=== PATIENT | female | born 1960 | race Caucasian/White ===

== ENCOUNTER 2019-01-29 08:39 | Inpatient (IN) | payer MEDICARE, BC ==
[~2019-01-29] VITALS: Ht 152.4 cm; Wt 41.0 kg
[2019-01-29] VITALS (12 sets, daily range): BP systolic 96–118; BP diastolic 43–74; PULSE 93–108; RESP 24–34; Ht 152.4 cm; Wt 41.0 kg
[2019-01-29] MEDS ORDERED: SODIUM CHLORIDE 0.9% 1L BAG IV* STA (08:45)
[2019-01-29] MEDS ORDERED: ACETAMINOPHEN 650 MG SUPP PR ONE (09:00)
[2019-01-29] MEDS ORDERED: VANCOMYCIN 1 GM (PMX) 250 ML IVPB ONE (09:00)
[2019-01-29] MEDS ORDERED: PIPER-TAZO 3.375 GM IV (PMX) 100 ML IVPB ONE (09:00)
--- NOTE | 2019-01-29 09:03 | ERD ---
ER Documentation Chief Complaint Chief Complaint HPI This is a 58-year-old woman with multiple medical conditions and including end-s tage kidney disease, chronic encephalopathy, quadriplegia brought in by EMS from alf facility for fever. She was due for hemodialysis today although could not be transferred there due to fever. Patient has had no vomiting or diarrhea, no seizure activity. HPI was limited as patient was nonverbal although was supplemented by reviewing retirement records, speaking to EMS and nursing ROS All systems reviewed and are negative except as per history of present illness. Medications Home Meds Reported Medications Insulin Aspart* (Novolog Insulin Pen*) 100 Unit/Ml Soln, 0 SC Q4, EA 70-150 = 0 UNITS 151-200 = 2 UNITS 201-250 = 4 UNITS 251-300 = 6 UNITS 301-350 = 8 UNITS 351-400 =10 UNITS >400 = 12 UNITS AND CALL 01/29/19 Sodium Phosphate* (Phos-Nak*) 250 Mg/Pkt Soln, 250 MG GTB BID, PACKET [phone] 01/29/19 Lansoprazole* (Prevacid* Soltab) 30 Mg Tab, 30 MG GTB DAILY, TAB 01/29/19 Multivit/Ca Carb/B Cmplx/Fa* (Teresa-Sonido*) 1 Tab Tab, 1 TAB GTB DAILY, TAB 01/29/19 Calcium Carbonate* (Calcium Carbonate*) 600 MG Ca Tab, 600 MG GTB DAILY, TAB 01/29/19 Acetaminophen* (Acetaminophen*) 650 Mg Tablet, 650 MG GTB Q4 PRN for PAIN LEVEL 4-6 , #30 TAB 01/29/19 Ascorbic Acid* (Vitamin C*) 500 Mg Capsule.sa, 500 MG GTB DAILY, CAP 01/29/19 Zinc Sulfate* (Zinc Sulfate*) 220 Mg Tablet, 220 MG GTB DAILY, TAB 01/29/19 Insulin Detemir (Levemir Flextouch) 100 Unit/1 Ml Insuln.pen, 8 UNIT SQ DAILY, EA IF NPO GIVE 1/2 A DOSE 01/29/19 Calcitriol* (Calcitriol*) 0.5 Mcg Capsule, 0.5 MCG GTB DAILY, CAP 01/29/19 Magnesium Hydroxide* (Milk Of Magnesia*) 400 Mg/5 Ml Oral.susp, 30 ML GTB DAILY PRN for CONSTIPATION, ML 01/29/19 Bisacodyl (Laxative Suppository) 10 Mg Supp.rect, 10 MG RC DAILY PRN for CONSTIPATION, SUPP.RECT 01/29/19 Atorvastatin* (Atorvastatin*) 80 Mg Tablet, 80 MG GTB QHS, #30 TAB 01/29/19 Amlodipine Besylate* (Amlodipine Besylate*) 10 Mg Tablet, 10 MG GTB DAILY, #30 TAB HOLD IF SBP <110 OR HR <60 01/29/19 Allergies Allergies: Coded Allergies: No Known Allergy (Unverified , 01/29/19) PMhx/Soc History of end-stage kidney disease, quadriplegia, dysphagia, sacral decubitus ulcers, diabetes mellitus, hypertension, hyperlipidemia, GERD, ?stroke FmHx Family History: diabetes Physical Exam Vitals Vital Signs Date Temp Pulse Resp B/P (MAP) Pulse Ox O2 O2 Flow FiO2 Time Delivery Rate 01/29/19 94 25 67/47 (54) 100 Mechanica 11:37 l Ventilato r 01/29/19 100 30 79/40 (53) 100 Mechanica 10:47 l Ventilato r 01/29/19 97.9 102 24 104/74 100 Mechanica 10:34 (84) l Ventilato r 01/29/19 107 30 99 100 10:00 01/29/19 100.7 114 25 77/39 (52) 100 09:32 01/29/19 Non 15 09:32 Rebreathe r 01/29/19 100.7 09:09 Per nurse's records Physical Exam Const: Elderly, chronically debilitated, eyes open, unresponsive, febrile HEENT: mild uremic perdomo, pink conjunctive a, dry mucous membranes, no goiter Resp: Clear to auscultation bilaterally Cardio: Tachycardic and regular Abd: Soft, non tender, non distended. Skin: No petechiae or rashes, no lacerations, chronic ecchymosis hematoma to the left upper extremity, sacral and back exams deferred to nursing although I suspect decubitus pressure ulcers Ext: No cyanosis, or edema, diffuse muscular wasting, distal pulses equal bilateral Neur: Eyes open, pupils equal round reactive to light, quadriplegic, nonverbal and unresponsive Result Diagram: 01/29/19 0847 01/29/19 0847 Results 24 hrs Laboratory Tests Test 5/21/19 08:47 01/29/19 09:18 01/29/19 10:21 01/29/19 10:45 White Blood 22.4 10^3/ul Count Red Blood Count 2.63 10^6/ul Hemoglobin 7.3 g/dl Hematocrit 24.2 % Mean Corpuscular 92.0 fl Volume Mean Corpuscular 27.8 pg Hemoglobin Mean Corpuscular 30.2 g/dl Hemoglobin Georgette nt Red Cell 16.7 % Distribution Width Platelet Count 303 10^3/UL Mean Platelet 9.7 fl Volume Immature 1.000 % Granulocytes % Neutrophils % % Segmented 46 % Neutrophils % (Manual) Band Neutrophils 42 % % (Manual) Lymphocytes % % Lymphocytes % 1 % (Manual) Monocytes % % Monocytes % 4 % (Manual) Eosinophils % % Basophils % % Metamyelocytes % 5 % (manual) Myelocytes % 2 % (Manual) Nucleated Red 4 % Blood Cells % Immature 0.220 10^3/ul Granulocytes # Neutrophils # 10^3/ul Neutrophils # 12.4 10^3/ul (Manual) Band Neutrophils 9.4 10^3/ul # Lymphocytes 0.2 10^3/ul (Manual) Lymphocytes # 10^3/ul Monocytes # 10^3/ul Monocytes # 0.8 10^3/ul (Manual) Eosinophils # 10^3/ul Basophils # 10^3/ul Metamyelocytes # 1.1 10^3/ul Myelocytes # 0.4 10^3/ul Nucleated Red 10^3/ul Blood Cells # Platelet NORMAL Estimate Giant Platelets 1 % Polychromasia 1+ Poikilocytosis 2+ Anisocytosis 1+ Spherocytes 1+ Tear Drop Cells 1+ Ovalocytes 1+ Prothrombin Time 16.7 Sec Prothrombin Time 1.3 Ratio INR 1.34 International Normalized Ratio Activated 38.3 Sec Partial Thrombop last Time Sodium Level 140 mmol/L Potassium Level 3.5 mmol/L Chloride Level 102 mmol/L Carbon Dioxide 16 mmol/L Level Anion Gap 22 Blood Urea 101 mg/dl Nitrogen Creatinine 5.17 mg/dl Est Glomerular 8 mL/min Filtrat Rate mL/min Glucose Level 317 mg/dl Calcium Level 8.9 mg/dl Total Bilirubin 0.1 mg/dl Direct Bilirubin 0.00 mg/dl Indirect 0.1 mg/dl Bilirubin Aspartate Amino 27 IU/L Transf (AST/SGOT ) Alanine 8 IU/L Aminotransferase (ALT/SGPT) Alkaline 131 IU/L Phosphatase Troponin I 0.040 ng/ml Total Protein 6.7 g/dl Albumin 3.0 g/dl Globulin 3.70 g/dl Albumin/Globulin 0.81 Ratio Lipase 12 U/L POC Venous 5.9 mmol/L Lactate Lactic Acid 7.7 mmol/L Level Blood Gas Blood arterial Specimen Source Arterial Blood 01/29/2019 11:15: Date Drawn 13 AM Arterial Blood 7.392 pH (Temp corrected) Arterial Blood 23.2 mmhg pCO2 (Temp correct) Arterial Blood 525.2 mmHG pO2 (Temp corrected) Arterial Blood 13.8 mmol/L HCO3 Arterial Blood -10.0 mmol/L Base Excess Arterial Blood 99.8 mmHG Oxygen Saturatio n Ben Test N/A Arterial Blood Right Brachial Gas Puncture Site Arterial 0.3 % Blood Carboxyhem oglobin Arterial Blood 0.5 % Methemoglobin Blood Gas A-a O2 164.6 mmHg Differential Oxyhemoglobin 99.0 % Percent Blood Gas 37.0 C Temperature Blood Gas 16.0 Respiration Rate Blood Gas Actual 26 Respiration Rate Blood Gas VENT - AC Modality FiO2 100.0 % Blood Gas Tidal 450.0 mL Volume Blood Gas Low 5.0 cmH2O PEEP Setting Blood Gas TM Notified Whom Blood Gas 01/29/2019 11:28: Notified Time 59 AM Current Medications Medications Dose Sig/Nasrin Start Time Status Last (Trade) Ordered Route PRN Stop Time Admin Dose Reason Admin Sodium 1,000 ml BOLUS OVER 2 01/29/19 DC 01/29/19 Chloride HOURS STAT 08:45 09:09 (NS) IV* 01/29/19 08:48 Piperacillin 100 ml @ ONCE ONCE 01/29/19 DC 01/29/19 Sod/ 200 mls/hr IVPB 09:00 09:10 Tazobactam 01/29/19 09:29 Sod Vancomycin 250 ml @ ONCE ONCE 01/29/19 DC 01/29/19 HCl 125 mls/hr IVPB 09:00 10:14 01/29/19 10:59 650 mg ONCE ONCE 01/29/19 DC 01/29/19 Acetaminophen NM 09:00 09:09 (Tylenol 01/29/19 09:01 Supp) Sodium 1,000 ml @ [id number] IV 01/29/19 01/29/19 Chloride 75 mls/hr 09:53 11:02 IV Flush 3 ml PER 5/21/19 (NS 3 ml) PROTOCOL IV 10:00 Ondansetron 4 mg Q6H PRN 01/29/19 HCl (Zofran IV 10:00 Inj) NAUSEA/VOMITI NG Morphine 2 mg Q4H PRN 01/29/19 Sulfate IV .PAIN 10:00 (morphine) 7-10 40 mg DAILY@06 01/30/19 Pantoprazole IV 06:00 (Protonix Iv) 100 ml @ Q6H PRN 01/29/19 Acetaminophen 400 mls/hr IVPB 10:00 fever/pain 01/30/19 09:59 Piperacillin 100 ml @ Q6 IVPB 01/29/19 Cancel Sod/ 200 mls/hr 12:00 Tazobactam Sod Vancomycin VANCOMYCIN PER 01/29/19 HCl (Vanco PER PHARMACY PROTOCOL XX 10:00 Iv Per Pharmacy) Piperacillin 50 ml @ Q8 IVPB 01/29/19 Sod/ 100 mls/hr 15:00 Tazobactam Sod Discontinue ONCE ONCE 01/29/19 DC Miscellaneous current oral XX 11:00 sulfonylur... 01/29/19 11:04 Information (* Miscellaneous Pharmacy Order) Diagnostic 1 ea 02 XX 01/30/19 Test (Pha) 02:00 (Accu-Chek) ONCE ONCE 01/29/19 DC Miscellaneous HYPOGLYCEMIA XX 11:00 PROTOCOL 01/29/19 11:04 Information w... (* Miscellaneous Pharmacy Order) Insulin NOVOLOG Q4 SC 01/29/19 Aspart *MILD* 13:00 (Novolog ALGORITHM Insulin Pen) Discontinue ONCE ONCE 01/29/19 DC Miscellaneous all previ... XX 11:00 01/29/19 11:04 Information (* Miscellaneous Pharmacy Order) 1 ea NOTE XX 01/29/19 Miscellaneous 11:30 Information Glucose 15 gm Q15M PRN 01/29/19 (Glutose) PO DECREASED 11:30 GLUCOSE Glucose 22.5 gm Q15M PRN 01/29/19 (Glutose) PO DECREASED 11:30 GLUCOSE Dextrose 25 ml Q15M PRN 01/29/19 (D50w IV DECREASED 11:30 Syringe) GLUCOSE Dextrose 50 ml Q15M PRN 01/29/19 (D50w IV DECREASED 11:30 Syringe) GLUCOSE Glucagon 1 mg Q15M PRN 01/29/19 (Glucagen) IM DECREASED 11:30 GLUCOSE Glucose 15 gm Q15M PRN 01/29/19 (Glutose) BUCCAL 11:30 DECREASED GLUCOSE Lidocaine 5 ml ONCE ONCE 01/29/19 DC (Xylocaine SC 11:30 1% (Mpf)) 01/29/19 11:31 250 ml @ ud STK-MED 01/29/19 DC Norepinephrin ONCE .ROUTE 12:02 e 01/29/19 12:03 250 ml @ 0 TITRATE IV 01/29/19 01/29/19 Norepinephrin mls/hr 12:30 12:21 e Procedures/MDM IV line established patient placed on monitor and storage bin tender rhythm strip revealed a si nus tachycardia at 120 bpm. Patient was febrile, Sanchez was placed urine and blood cultures have been ordered results are pending I will follow-up. One AP view of the chest performed, read by me reveals no acute infiltrates, normal mediastinum, sharp costophrenic and cardiac borders, no air under the diaphragm. Otherwise unremarkable chest x-ray. EKG performed, read by me revealed a sinus tachycardia at 102 bpm, normal axis, narrow QRS complex, no concerning ST elevations or depressions noted I administered 2 L normal saline IV for dehydration and possible sepsis although full 30 cc/kg could not be given due to her past medical history, I administered acetaminophen per rectum for fever, Zosyn 3.375 g IV and vancomycin 1 g IV Labs: CBC reveals leukocytosis at 22 and anemia with a hemoglobin of 7.3, electrolytes reveals kidney failure with a creatinine 5.2, potassium normal, liver function tests unremarkable, troponin negative. Lactic acid 5.9 then 7.7 For continued dyspnea I intubated the patient. Endotracheal Intubation by me: Pre assessment performed. I administered etomidate 20 mg IV for sedation preintubation Pre-oxygenation performed with 100% oxygen RSI: Performed w/o complication or hypoxic events. Medications as ordered. Blade: 4.0 ET Tube: 7.5 cm Depth: 20 cm at the lip Intubation confirmed by colorimetric CO2, equal breath sounds, quiet over the stomach. Repeat chest X-ray 1V Interpreted by me: About 3 cm above the heide ET tube. Normal soft tissue, No pneumothorax. Central Line Placement by me: After the patient was consented and a time out was performed, appropriate hand hygiene was performed, the skin site was fully prepped and maximal sterile barrier technique was employed where the patient was sterilely draped, and the provider wore a mask and sterile gown and gloves. Anesthesia: 1% lidocaine locally Location: Right femoral vein Device: Multiple lumen Technique: Seldinger technique. Secured with suture. Results: Venous return from all ports with easy saline flush. No complications. The entire guide wire retrieved and disposed of. Patient's infectious symptoms have not stabilized and the patient is at risk of rapid decompensation. The patient will be admitted for careful hydration, antibiotic therapy, and infectious source control. SEVERE SEPSIS CRITERIA: Infectious source: Blood-borne End organ damage indicated by: Lactate > 2.0 mmol/L Hypotension (SBP < 90 or >40 mmHG drop or MAP < 65) Acute Resp Failure (sat < 92% w/o oxygen) SEPSIS MANAGEMENT Time of recognition of sepsis: Upon arrival. Time of recognition of severe sepsis: No severe sepsis at this time. Time of recognition of septic shock: No septic shock at this time. 3 HOUR BUNDLE Blood cultures x 2 before broad-spectrum antibiotics: Yes 30 ml/kg NS bolus not given due to renal failure Initial lactate 5.9 Repeat lactate 7.7 SEPTIC SHOCK ASSESSMENT: Yes lactic acid > 4.0 Yes placed in the right femoral line (see above note) persistent hypotension (SBP < 90 or 40 mmHg drop, MAP < 65) despite 30 mL/kg IV fluid bolus VOLUME REASSESSMENT FOR SEPTIC SHOCK: Reevaluation Time: 10 AM Temp 99 F, pulse 90 bpm, respiratory rate 20 breaths/min, BP 100/80, oxygen saturation 100% Heart regular rate & rhythm Lungs no crackles Skin warm & dry Cap Refill less than 2 seconds Peripheral pulses radially present PERSISTENT HYPOTENSION TREATMENT: Comfort care no Central line placed in the right femoral vein (see above note) Vasopressor started Levophed drip I considered further perfusion assessment with CVP measurement, SCVO2, bedside ultrasound volume assessment, passive leg raise, trial of further fluid bolus. And proceeded with gentle fluid hydration, IV antibiotics, intubation and central line placement CRITICAL CARE: Critical care time 65 minutes, this was time separate from other billable procedures. Emergent fluid management while maintaining close respiratory support. Provision of immediate and broad-spectrum antibiotic therapy. Simultaneous assessment for possible sources in order to direct targeted therapy. Consideration for invasive and chemical support to prevent cardiopulmonary collapse. Critical care time is independent of procedures performed. Accepting Care Team: Current data and ongoing care discussed. Time: Time of admission Primary Provider: Hospitalist Consulting: Infectious disease, nephrology, pulmonology Outstanding Data: none Departure Diagnosis: Primary Impression: End stage kidney disease Additional Impressions: Septic shock Acute respiratory failure Respiratory failure complication: hypoxia and hypercapnia Qualified Codes: J96.01 - Acute respiratory failure with hypoxia; J96.02 - Acute respiratory failure with hypercapnia Hypotension Hypotension type: unspecified hypotension type Qualified Codes: I95.9 - Hypotension, unspecified Condition: Critical ERIKA MURPHY MD January 29, 2019 09:03
[2019-01-29] MEDS ORDERED: AMLO-147 GTB (09:26)
[2019-01-29] MEDS ORDERED: ATOR-2 GTB (09:27)
[2019-01-29] MEDS ORDERED: BISA10SU81 RC (09:28)
[2019-01-29] MEDS ORDERED: MAGN400O19 GTB (09:29)
[2019-01-29] MEDS ORDERED: CALC0.5C10 GTB (09:29)
[2019-01-29] MEDS ORDERED: ZINC220T GTB (09:31)
[2019-01-29] MEDS ORDERED: INSU100I27 SQ (09:31)
[2019-01-29] MEDS ORDERED: ASCO500C7 GTB (09:32)
[2019-01-29] MEDS ORDERED: ACET-2047 GTB (09:32)
[2019-01-29] MEDS ORDERED: CALC600T24 GTB (09:33)
[2019-01-29] MEDS ORDERED: NEPH GTB (09:34)
[2019-01-29] MEDS ORDERED: LANS30TA6 GTB (09:35)
[2019-01-29] MEDS ORDERED: NEUTPHOS GTB (09:36)
[2019-01-29] MEDS ORDERED: NOVO3I SC (09:39)
[2019-01-29] MEDS ORDERED: VANCOMYCIN IV PER PHARMACY XX SCH (10:00)
[2019-01-29] MEDS ORDERED: ACETAMINOPHEN 1000MG/100ML IV 100 ML IVPB PRN (10:00)
[2019-01-29] MEDS ORDERED: ONDANSETRON 4 MG INJ IV PRN (10:00)
[2019-01-29] MEDS ORDERED: morphine 2 MG INJ IV PRN (10:00)
[2019-01-29] MEDS ORDERED: NACL 0.9% 3 ML SYG IV SCH (10:00)
[2019-01-29] MEDS: SOD CHLORIDE 0.9% 1,000 ML IV SCH (11:02)
--- NOTE | 2019-01-29 11:21 | CONS ---
DATE OF ADMISSION: 01/29/2019 DATE OF CONSULTATION: 01/29/2019 REASON FOR CONSULT: Respiratory distress and respiratory failure. HISTORY OF PRESENT ILLNESS: This is a 58-year-old lady with history of end-stage renal failure on he modialysis and chronic encephalopathy, quadriplegia, brought in from correction facility for alt ered mental status. Apparently he was scheduled for hemodialysis today and was unable to perform. S he developed worsening respiratory distress requiring emergent intubation in the Emergency Room and n ow is moderately hypotensive potentially requiring initiation of vasopressors. PAST MEDICAL HISTORY: 1. End-stage renal failure on hemodialysis. 2. Quadriplegia. 3. Dysphagia with G-tube. 4. Decubitus ulcers. 5. Diabetes mellitus. MEDICATIONS: Per chart. ALLERGIES: NONE. SOCIAL HISTORY: Nonsmoker, no alcohol, no history of drug use. FAMILY HISTORY: Noncontributory. SYSTEMS REVIEW: A 12-point review of systems currently unable to perform. PHYSICAL EXAMINATION: GENERAL: A chronically ill-appearing lady with contractions on mechanical ventilation. VITAL SIGNS: T-max 100.7, pulse is 100, blood pressure 104/74, O2 saturation 96%, FIO2 of 100%. NECK: Supple. No JVD or lymphadenopathy. CARDIAC: S1, S2, no added sounds or murmurs. CHEST: Diminished air entry bilaterally. ABDOMEN: Soft, nontender. No guarding or rebound. EXTREMITIES: No cyanosis, clubbing, 2+ edema. NEUROLOGIC: Unable to assess. LABORATORY DATA: White count 22.4, hemoglobin 7.3, platelets 303. BUN 101, creatinine 5.17. Lactic acid was 5.9. INR 1.34. DIAGNOSTIC DATA: Chest x-ray: No significant infiltrates or effusions. IMPRESSION AND PLAN: 1. Septic shock. 2. Acute hypoxemic respiratory failure. 3. End-stage renal failure on hemodialysis. 4. Encephalopathy. 5. Quadriplegia. 6. Dysphagia. 7. Decubitus ulcers. THE PATIENT WILL REQUIRE: 1. Continued mechanical ventilation. 2. Central line placement vasopressor support. 3. Broad-spectrum antibiotics. 4. Resumption of tube feeding. 5. Hemodialysis as tolerated. 6. Address code status and goals of care as overall prognosis is extremely poor. Dictated By: TRENT BHAENA/JULIO Conf#: [id number] [facility]#: [id number]
[2019-01-29] MEDS ORDERED: GLUCOSE GEL 15 GRAM TUBE PO PRN ×2 (11:30)
[2019-01-29] MEDS ORDERED: LIDOCAINE 1% (MPF) 5 ML VIAL SC ONE (11:30)
[2019-01-29] MEDS ORDERED: GLUCOSE GEL 15 GRAM TUBE BUCCAL PRN (11:30)
[2019-01-29] MEDS ORDERED: GLUCAGON 1 MG INJ IM PRN (11:30)
[2019-01-29] MEDS ORDERED: DEXTROSE 50% 50 ML SYRINGE IV PRN ×2 (11:30)
--- NOTE | 2019-01-29 11:37 | CONS ---
DATE OF ADMISSION: 01/29/2019 DATE OF CONSULTATION: 01/29/2019 TYPE OF CONSULTATION: Nephrology. REASON FOR CONSULTATION: End-stage renal disease. REQUESTING PHYSICIAN: Kyle Alva MD HISTORY OF PRESENT ILLNESS: This is a 58-year-old woman from a skilled nurse facility with a past medical history of end-stage renal disease, access is a left Perm-A-Cath, a history of diabetes, hypertension, dyslipidemia, GERD, history of questionable CVA, who presents to [facility] with respiratory distress. The patient was scheduled for hemodialysis today; however, was noted to be febrile. The patient was brought into the Emergency Room, upon arrival, the patient was noted to be altered. patient was in respiratory distress, febrile. The patient was hypotensive. The patient unfortunately required intubation, was started on broad spectrum antibiotics and IV fluids. In terms of patient's outpatient renal history, the patient dialyzes at [facility]. The patient's last hemodialysis was Monday. There have been no reports of any hemoptysis, hematemesis or hematochezia. PAST MEDICAL HISTORY: As stated above, history of end-stage renal disease, history of encephalopathy, history of diabetes, history of hypertension, dyslipidemia, GERD. PAST SURGICAL HISTORY: Status post left femoral dialysis catheter placement., s/p avf, s/p colostomy. s/p peg placement FAMILY HISTORY: Noncontributory. SOCIAL HISTORY: Lives at skilled nurse facility. MEDICATIONS: Have been reviewed. REVIEW OF SYSTEMS: Unable to obtain patient's review of systems as patient is obtunded. Pertinent positives last obtained by reviewing medical records, speaking to hospital staff, stated in HPI. PHYSICAL EXAMINATION: VITAL SIGNS: Blood pressure is 104/74, respirations 24, pulse 102, temperature 100.7. GENERAL: The patient is critically ill. HEENT: Head is normocephalic. Pupils are reactive to light. NECK: Supple. Positive JVD. HEART: Tachycardic. LUNGS: Show diminished breath sounds at base. Positive rhonchi. ABDOMEN: Soft, nontender to palpation. EXTREMITIES: Negative for clubbing, cyanosis, no edema. Left upper extremity positive edema, erythema. MUSCULOSKELETAL: The patient has noted left femoral dialysis catheter. NEUROLOGIC: Limited exam as the patient is obtunded. MEDICATIONS: Have been reviewed. LABORATORY DATA: Has been reviewed. IMAGING STUDIES: Have been reviewed. ASSESSMENT AND PLAN: This is a 58-year-old female who presents with: 1. End-stage renal disease. The patient is on dialysis Monday, Monday, Monday. Last hemodialysis was Monday. Anticipate hemodialysis in the next 24 hours. Will dialyze for 3 hours 4k bath, calcium 2.5. 2. Lactic acidosis likely secondary to severe sepsis, septic shock. Continue to treat underlying sepsis. Continue IV fluids, antibiotic therapy. Monitor lactic acid levels. 3. Anemia. Continue to monitor hemoglobin and hematocrit levels. We will check an iron panel. Give Epogen as needed. 4. Mineral bone disorder, monitor calcium, phosphorus levels. No need for phos binders. 5. Ventilator dependent respiratory failure. Vent settings have been reviewed. ABG has been reviewed. Continue to monitor. Consider pulmonary evaluation. 7. Severe sepsis, shock. Underlying source is unclear, possible line infection, left arm cellulitis Plan is to check blood cultures from peripheral as well as dialysis catheter. . Continue broad spectrum antibiotics, continue hydration. Continue pressor support as needed. 7. History of colostomy. continue to monitor 8. Acute encephalopathy, etiology is toxic metabolic. 9. History of diabetes. Continue insulin sliding scale. 10. Dyslipidemia. Continue statin therapy. 11. Dysphagia. Continue tube feeding. Thank you, Dr. Alva, for this interesting consult. It will be a pleasure to follow patient with you throughout the hospital course. Dictated By: TYE NUNEZ DO NR/NTS Conf#: [id number] DID#: [id number] CC: KYLE ALVA MD;*EndCC* MTDD
[2019-01-29] MEDS ORDERED: PIPER-TAZO 3.375 GM IV (PMX) 100 ML IVPB SCH ×2 (12:00→20:00)
[2019-01-29] MEDS ORDERED: NORepinephrine 8MG/250 ML (PMX 250 ML ONE (12:02)
[2019-01-29] MEDS: NORepinephrine 8MG/250 ML (PMX 250 ML IV SCH (12:21)
[2019-01-29] MEDS: INSULIN ASPART [NOVOLOG] 3 ML PEN SC SCH ×3 (13:00→21:00)
--- NOTE | 2019-01-29 15:14 | RADRPT ---
Echocardiogram Report Patient Name: ROOPA BUTLERPatient ID: [id number] : 1960 (58y 9m)Study Date: 01/29/2019 1:25:25 PM Gender: FAccession #: [id number] Tech: Deyvi Luna PRAVEEN Location: [facility] Ref.Physician: ERIKA ALVA Height(Cm): BSA: Weight(Kg): Quality: AdequateOrder Physician: ERIKA ALVA Account #: Procedures: Echocardiographic Report: Transthoracic echocardiogram with complete 2D, M-Mode, and doppler examination. Indications: Sepsis. Measurements: 2D/M Mode Doppler Measurement Value Normal Range Measurement Value Normal Range LVIDd 2D 3.1 [ 3.8 - 5.2 ] cm AV Peak Gildardo 1.5 [ 100.0 - 170.0 ] cm/sec LVIDs 2D 2.0 [ 2.2 - 3.5 ] cm AV Peak PG 9.0 [ 2.0 - 9.0 ] mmHg LVPWd 2D 1.0 [ 0.6 - 0.9 ] cm LVOT Peak Gildardo 0.8 [ 70.0 - 110.0 ] cm/sec IVSd 2D 1.0 [ 0.6 - 0.9 ] cm LVOT Peak PG 2.0 [ 2.0 - 6.0 ] mmHg AoR Diam 2D 2.4 [ 2.3 - 3.1 ] cm MV E Peak Gildardo 0.7 [ 60.0 - 130.0 ] cm/sec EDV 2D 38.5 [ 46.0 - 106.0 ] ml MV A Peak Gildardo 0.6 [ 100.0 - 120.0 ] cm/sec ESV 2D 13.1 [ 14.0 - 42.0 ] ml MV E/A 1.3 [ 0.8 - 1.5 ] ratio EF 2D 66.0 [ 54.0 - 74.0 ] percent MV Decel Time 197 [ 104 - 258 ] msec LA Dimen 2D 2.3 [ 2.7 - 3.8 ] cm Lat E` Gildardo 0.1 [ 10.0 - 15.0 ] cm/sec Lateral E/E` 13.4 [ 1.0 - 2.0 ] ratio MV E/A 1.3 [ 0.8 - 1.5 ] ratio Findings: Left Ventricle: Normal left ventricular systolic function. Normal left ventricular cavity size. Normal left ventricular wall thickness. Mild concentric left ventricular hypertrophy. Ejection fraction is visually estimated at 65 %. Abnormal Diastolic Function. Right Ventricle: Normal right ventricular size. Normal right ventricular systolic function. Left Atrium: The left atrium is normal in size. Right Atrium: The right atrium is normal in size. Mitral Valve: Normal appearance and function of the mitral valve with trace physiologic regurgitation. Aortic Valve: No significant aortic stenosis or insufficiency. Aortic cusps appear mildly calcified. Tricuspid Valve: Normal appearance of the tricuspid valve. Unable to obtain RVSP due to minimal presence of tricuspid regurgitation. Pulmonic Valve: Pulmonic valve not well visualized. Pericardium: Normal pericardium with no significant pericardial effusion. Aorta: Normal aortic root. IVC: Normal IVC with respiratory collapse, however patient on ventilator. Conclusions: Normal left ventricular systolic function. Normal left ventricular cavity size. Normal left ventricular wall thickness. Mild concentric left ventricular hypertrophy. Ejection fraction is visually estimated at 65 %. Abnormal Diastolic Function. Normal appearance and function of the mitral valve with trace physiologic regurgitation. No significant aortic stenosis or insufficiency. Aortic cusps appear mildly calcified. Normal appearance of the tricuspid valve. Unable to obtain RVSP due to minimal presence of tricuspid regurgitation. Electronically Signed By: Keegan Sky 2019-01-29 15:14:23 PDT
[2019-01-29] MEDS: PIPER-TAZO 2.25 GM/NS 50 ML IVPB SCH (15:26)
--- NOTE | 2019-01-29 18:16 | CONS ---
Assessment/Plan Assessment/Plan Hospital Course (Demo Recall) septic shock /. Severe sepsis Hypoxemic respiratory failure status post intubation on the vent Renal failure on dialysis Left upper extremity cellulitis. Rule out necrotizing fasciitis History of hypertension: Currently hypotensive Diabetes Severe metabolic acidosis and lactic acidosis Encephalopathy Fever due to above Severe anemia Questionable history of prior CVA Status post colostomy Recommendation: Antibiotic as per internal medicine. Continue with the vent support. Levophed will be continued and adjusted as needed. Hemodialysis as tolerated by renal CT of the arm has been ordered Vascular surgery to be consulted. Discussed with Off of aspirin given her severe anemia Patient will be admitted to closely monitor to intensive care unit Condition is guarded Thank you for this referral. We will continue to follow along with you LILIANA LAN MD [facility] Consultation Date/Type/Reason Admit Date/Time Date of Consultation: January 29, 2019 Type of Consult Cardiology Reason for Consultation SHOCK Requesting Provider: TYE NUNEZ DO Date/Time of Note DATE: 01/29/19 TIME: 18:04 Hx of Present Illness Interventional cardiology consultation note Chief complaint: Respiratory distress Reason for consult: Shock History of present illness: Thank you for this referral. History was obtained from review of the chart review of the old chart discussion with the physicians and staff. Patient himself is intubated unable to provide any history to me. This is a unfortunate 58-year-old woman from a skilled nurse facility with a past medical history of end-stage renal disease, diabetes, hypertension, dyslipidemia, GERD, history of questionable CVA, who presents to [facility] with respiratory distress. The patient was scheduled for hemodialysis today; however, was noted to be febrile. The patient was brought into the Emergency Room, upon arrival, the patient was noted to be altered. patient was in respiratory distress, febrile. The patient was hypotensive. The patient unfortunately required intubation, was started on broad spectrum antibiotics and IV fluids. She has been hypotensive and required to be on Levophed drip currently. She was noted to have also severe lactic acidosis Patient herself is not able to provide any history to me but there is no report of any left-sided chest pain or pressure PAST MEDICAL HISTORY: As stated above, history of end-stage renal disease, history of encephalopathy, history of diabetes, history of hypertension, dyslipidemia, GERD. PAST SURGICAL HISTORY: Status post hemodialysis access placement FAMILY HISTORY: No reported history of early coronary artery disease in immediate family SOCIAL HISTORY: Lives at skilled nurse facility. Non-smoker at the present MEDICATIONS: As reviewed as per medical reconciliation sheet which was personally reviewed Allergies: No known drug allergies Review of system: Unable to obtain except for above-mentioned Past Medical History Home Meds Reported Medications Insulin Aspart* (Novolog Insulin Pen*) 100 Unit/Ml Soln, 0 SC Q4, EA 70-150 = 0 UNITS 151-200 = 2 UNITS 201-250 = 4 UNITS 251-300 = 6 UNITS 301-350 = 8 UNITS 351-400 =10 UNITS >400 = 12 UNITS AND CALL 01/29/19 Sodium Phosphate* (Phos-Nak*) 250 Mg/Pkt Soln, 250 MG GTB BID, PACKET [phone] 01/29/19 Lansoprazole* (Prevacid* Soltab) 30 Mg Tab, 30 MG GTB DAILY, TAB 01/29/19 Multivit/Ca Carb/B Cmplx/Fa* (Teresa-Sonido*) 1 Tab Tab, 1 TAB GTB DAILY, TAB 01/29/19 Calcium Carbonate* (Calcium Carbonate*) 600 MG Ca Tab, 600 MG GTB DAILY, TAB 01/29/19 Acetaminophen* (Acetaminophen*) 650 Mg Tablet, 650 MG GTB Q4 PRN for PAIN LEVEL 4-6 , #30 TAB 01/29/19 Ascorbic Acid* (Vitamin C*) 500 Mg Capsule.sa, 500 MG GTB DAILY, CAP 01/29/19 Zinc Sulfate* (Zinc Sulfate*) 220 Mg Tablet, 220 MG GTB DAILY, TAB 01/29/19 Insulin Detemir (Levemir Flextouch) 100 Unit/1 Ml Insuln.pen, 8 UNIT SQ DAILY, EA IF NPO GIVE 1/2 A DOSE 01/29/19 Calcitriol* (Calcitriol*) 0.5 Mcg Capsule, 0.5 MCG GTB DAILY, CAP 01/29/19 Magnesium Hydroxide* (Milk Of Magnesia*) 400 Mg/5 Ml Oral.susp, 30 ML GTB DAILY PRN for CONSTIPATION, ML 01/29/19 Bisacodyl (Laxative Suppository) 10 Mg Supp.rect, 10 MG RC DAILY PRN for CONSTIPATION, SUPP.RECT 01/29/19 Atorvastatin* (Atorvastatin*) 80 Mg Tablet, 80 MG GTB QHS, #30 TAB 01/29/19 Amlodipine Besylate* (Amlodipine Besylate*) 10 Mg Tablet, 10 MG GTB DAILY, #30 TAB HOLD IF SBP <110 OR HR <60 01/29/19 Medications Current Medications Sodium Chloride 1,000 ml @ 75 mls/hr [id number] IV Last administered on 01/29/19at 11:02; Admin Dose 75 MLS/HR; Start 01/29/19 at 09:53 IV Flush (NS 3 ml) 3 ml PER PROTOCOL IV ; Start 01/29/19 at 10:00 Ondansetron HCl (Zofran Inj) 4 mg Q6H PRN IV NAUSEA/VOMITING; Start 01/29/19 at 10:00 Morphine Sulfate (morphine) 2 mg Q4H PRN IV .PAIN 7-10; Start 01/29/19 at 10:00 Pantoprazole (Protonix Iv) 40 mg DAILY@06 IV ; Start 01/30/19 at 06:00 Acetaminophen 100 ml @ 400 mls/hr Q6H PRN IVPB fever/pain; Start 01/29/19 at 10:00; Stop 01/30/19 at 09:59 Vancomycin HCl (Vanco Iv Per Pharmacy) VANCOMYCIN PER PHARMACY PER PROTOCOL XX ; Start 01/29/19 at 10:00 Piperacillin Sod/ Tazobactam Sod 50 ml @ 100 mls/hr Q8 IVPB Last administered on 01/29/19at 15:26; Admin Dose 100 MLS/HR; Start 01/29/19 at 15:00 Diagnostic Test (Pha) (Accu-Chek) 1 ea 02 XX ; Start 01/30/19 at 02:00 Insulin Aspart (Novolog Insulin Pen) NOVOLOG *MILD* ALGORITHM Q4 SC ; Start 01/29/19 at 13:00 Miscellaneous Information 1 ea NOTE XX ; Start 01/29/19 at 11:30 Glucose (Glutose) 15 gm Q15M PRN PO DECREASED GLUCOSE; Start 01/29/19 at 11:30 Glucose (Glutose) 22.5 gm Q15M PRN PO DECREASED GLUCOSE; Start 01/29/19 at 11:30 Dextrose (D50w Syringe) 25 ml Q15M PRN IV DECREASED GLUCOSE; Start 01/29/19 at 11:30 Dextrose (D50w Syringe) 50 ml Q15M PRN IV DECREASED GLUCOSE; Start 01/29/19 at 11:30 Glucagon (Glucagen) 1 mg Q15M PRN IM DECREASED GLUCOSE; Start 01/29/19 at 11:30 Glucose (Glutose) 15 gm Q15M PRN BUCCAL DECREASED GLUCOSE; Start 01/29/19 at 11:30 Norepinephrine 250 ml @ 0 mls/hr TITRATE IV Last administered on 01/29/19at 12:21; Admin Dose 5.625 MLS/HR; Start 01/29/19 at 12:30 Allergies: Coded Allergies: No Known Allergy (Unverified , 01/29/19) Social History Smoking Status: Unknown if ever smoked Exam/Review of Systems Vital Signs Vitals Vital Signs Date Temp Pulse Resp B/P (MAP) Pulse Ox O2 O2 Flow FiO2 Time Delivery Rate 01/29/19 99.9 105 31 102/48 100 Mechanical 17:50 (66) Ventilator 01/29/19 35 17:30 01/29/19 15 09:32 Exam Exam General: This was intubation on the vent HEENT: NC/AT. pupils are equal. round. NECK: . no stridor. CV: Tachycardic. systolic murmur; no gallop or rubs. PULM: no wheezing , + views rhonchi. GI: SOFT, status post colostomy in place Extremity: No significant LE edema but appears contracted there is significant upper extremity edema including blistering of the left upper extremity neuro: Eyes are noted but does not answer question Psych: calm rectal: deferred : deferred. s/p Fem central line placement EKG was personally reviewed shows sinus tachycardia Echocardiogram was personally reviewed which shows: Chest x-ray shows: Labs Result Diagram: 01/29/19 0847 01/29/19 0847 Results 24hrs Laboratory Tests Test 01/29/19 08:47 01/29/19 09:18 01/29/19 10:21 01/29/19 10:45 White Blood Count 22.4 H Red Blood Count 2.63 L Hemoglobin 7.3 L Hematocrit 24.2 L Mean Corpuscular 92.0 Volume Mean Corpuscular 27.8 L Hemoglobin Mean Corpuscular 30.2 L Hemoglobin Concen t Red Cell 16.7 H Distribution Width Platelet Count 303 Mean Platelet 9.7 Volume Immature 1.000 H Granulocytes % Neutrophils % Segmented 46 Neutrophils % (Manual) Band Neutrophils 42 H % (Manual) Lymphocytes % Lymphocytes % 1 L (Manual) Monocytes % Monocytes % 4 (Manual) Eosinophils % Basophils % Metamyelocytes % 5 H (manual) Myelocytes % 2 H (Manual) Nucleated Red 4 H Blood Cells % Immature 0.220 H Granulocytes # Neutrophils # Neutrophils # 12.4 H (Manual) Band Neutrophils 9.4 H # Lymphocytes 0.2 L (Manual) Lymphocytes # Monocytes # Monocytes # 0.8 (Manual) Eosinophils # Basophils # Metamyelocytes # 1.1 H Myelocytes # 0.4 H Nucleated Red Blood Cells # Platelet Estimate NORMAL Giant Platelets 1 H Polychromasia 1+ Poikilocytosis 2+ Anisocytosis 1+ Spherocytes 1+ Tear Drop Cells 1+ Ovalocytes 1+ Prothrombin Time 16.7 H Prothrombin Time 1.3 Ratio INR International 1.34 Normalized Ratio Activated 38.3 H Partial Thrombopl ast Time Sodium Level 140 Potassium Level 3.5 Chloride Level 102 Carbon Dioxide 16 L Level Anion Gap 22 H Blood Urea 101 H Nitrogen Creatinine 5.17 H Est Glomerular 8 L Filtrat Rate mL/min Glucose Level 317 H Calcium Level 8.9 Total Bilirubin 0.1 L Direct Bilirubin 0.00 Indirect 0.1 Bilirubin Aspartate Amino 27 Transf (AST/SGOT) Alanine 8 L Aminotransferase (ALT/SGPT) Alkaline 131 H Phosphatase Troponin I 0.040 Total Protein 6.7 Albumin 3.0 L Globulin 3.70 H Albumin/Globulin 0.81 Ratio Lipase 12 L POC Venous 5.9 *H Lactate Lactic Acid Level 7.7 *H Blood Gas Blood arterial Specimen Source Arterial Blood 01/29/2019 11:15: Date Drawn 13 AM Arterial Blood pH 7.392 (Temp corrected) Arterial Blood 23.2 L pCO2 (Temp correct) Arterial Blood 525.2 H pO2 (Temp corrected) Arterial Blood 13.8 L HCO3 Arterial Blood -10.0 L Base Excess Arterial Blood 99.8 H Oxygen Saturation Ben Test N/A Arterial Blood Right Brachial Gas Puncture Site Arterial 0.3 Blood Carboxyhemo globin Arterial Blood 0.5 Methemoglobin Blood Gas A-a O2 164.6 H Differential Oxyhemoglobin 99.0 Percent Blood Gas 37.0 Temperature Blood Gas 16.0 Respiration Rate Blood Gas Actual 26 Respiration Rate Blood Gas VENT - AC Modality FiO2 100.0 Blood Gas Tidal 450.0 Volume Blood Gas Low 5.0 PEEP Setting Blood Gas TM Notified Whom Blood Gas 01/29/2019 11:28: Notified Time 59 AM Test 01/29/19 13:20 01/29/19 14:36 Lactic Acid Level 6.8 *H Bedside Glucose 166 Medications Medications Current Medications Sodium Chloride 1,000 ml @ 75 mls/hr [id number] IV Last administered on 01/29/19at 11:02; Admin Dose 75 MLS/HR; Start 01/29/19 at 09:53 IV Flush (NS 3 ml) 3 ml PER PROTOCOL IV ; Start 01/29/19 at 10:00 Ondansetron HCl (Zofran Inj) 4 mg Q6H PRN IV NAUSEA/VOMITING; Start 01/29/19 at 10:00 Morphine Sulfate (morphine) 2 mg Q4H PRN IV .PAIN 7-10; Start 01/29/19 at 10:00 Pantoprazole (Protonix Iv) 40 mg DAILY@06 IV ; Start 01/30/19 at 06:00 Acetaminophen 100 ml @ 400 mls/hr Q6H PRN IVPB fever/pain; Start 01/29/19 at 10:00; Stop 01/30/19 at 09:59 Vancomycin HCl (Vanco Iv Per Pharmacy) VANCOMYCIN PER PHARMACY PER PROTOCOL XX ; Start 01/29/19 at 10:00 Piperacillin Sod/ Tazobactam Sod 50 ml @ 100 mls/hr Q8 IVPB Last administered on 01/29/19at 15:26; Admin Dose 100 MLS/HR; Start 01/29/19 at 15:00 Diagnostic Test (Pha) (Accu-Chek) 1 ea 02 XX ; Start 01/30/19 at 02:00 Insulin Aspart (Novolog Insulin Pen) NOVOLOG *MILD* ALGORITHM Q4 SC ; Start at 13:00 Miscellaneous Information 1 ea NOTE XX ; Start 01/29/19 at 11:30 Glucose (Glutose) 15 gm Q15M PRN PO DECREASED GLUCOSE; Start 01/29/19 at 11:30 Glucose (Glutose) 22.5 gm Q15M PRN PO DECREASED GLUCOSE; Start 01/29/19 at 11:30 Dextrose (D50w Syringe) 25 ml Q15M PRN IV DECREASED GLUCOSE; Start 01/29/19 at 11:30 Dextrose (D50w Syringe) 50 ml Q15M PRN IV DECREASED GLUCOSE; Start 01/29/19 at 11:30 Glucagon (Glucagen) 1 mg Q15M PRN IM DECREASED GLUCOSE; Start 01/29/19 at 11:30 Glucose (Glutose) 15 gm Q15M PRN BUCCAL DECREASED GLUCOSE; Start 01/29/19 at 11:30 Norepinephrine 250 ml @ 0 mls/hr TITRATE IV Last administered on 01/29/19at 12:21; Admin Dose 5.625 MLS/HR; Start 01/29/19 at 12:30 LILIANA LAN MD January 29, 2019 18:15
--- NOTE | 2019-01-29 19:04 | CONS ---
Assessment/Plan Assessment/Plan Assessment/Plan (Daily) Swelling left upper extremity This post left upper extremity AV fistula at outside hospital Patient does have thrombus in the left axillary vein and subclavian vein which could explain some of the swelling of the left arm in addition to the fistula placement Would consider heparin therapy if there is no contraindication Elevate the arm as much as possible IV fluids Antibiotics We will consider getting a CAT scan of the forearm looking for abscesses or fasciitis Infectious disease consult Consultation Date/Type/Reason Admit Date/Time Date of Consultation: January 29, 2019 Type of Consult Vascular surgery Reason for Consultation Swelling left arm Date/Time of Note DATE: 01/29/19 TIME: 18:59 Hx of Present Illness This is a 58-year-old female who lives in a long term facility has a history of renal failure currently on dialysis per catheter but the patient does have a history of a left arm AV fistula patient also has extensive other medical problems including diabetes hypertension dyslipidemia GERD CVA contracture patient was admitted to the emergency room because of altered mental status and fever she was also hypotensive had to be intubated antibiotics and IV fluid has been initiated has had a left arm AV fistula recently at [facility] [address] ENT: no complaints Respiratory: no complaints Cardiovascular: no complaints Gastrointestinal: no complaints Genitourinary: no complaints Musculoskeletal: no complaints Skin: no complaints; No bruising, No erythema, No laceration, No pruritis, No rash, No skin lesions, No other Neurologic: no complaints Endocrine: no complaints Past Medical History Home Meds Reported Medications Insulin Aspart* (Novolog Insulin Pen*) 100 Unit/Ml Soln, 0 SC Q4, EA 70-150 = 0 UNITS 151-200 = 2 UNITS 201-250 = 4 UNITS 251-300 = 6 UNITS 301-350 = 8 UNITS 351-400 =10 UNITS >400 = 12 UNITS AND CALL 01/29/19 Sodium Phosphate* (Phos-Nak*) 250 Mg/Pkt Soln, 250 MG GTB BID, PACKET [id number] 01/29/19 Lansoprazole* (Prevacid* Soltab) 30 Mg Tab, 30 MG GTB DAILY, TAB 01/29/19 Multivit/Ca Carb/B Cmplx/Fa* (Teresa-Sonido*) 1 Tab Tab, 1 TAB GTB DAILY, TAB 01/29/19 Calcium Carbonate* (Calcium Carbonate*) 600 MG Ca Tab, 600 MG GTB DAILY, TAB 01/29/19 Acetaminophen* (Acetaminophen*) 650 Mg Tablet, 650 MG GTB Q4 PRN for PAIN LEVEL 4-6 , #30 TAB 01/29/19 Ascorbic Acid* (Vitamin C*) 500 Mg Capsule.sa, 500 MG GTB DAILY, CAP 01/29/19 Zinc Sulfate* (Zinc Sulfate*) 220 Mg Tablet, 220 MG GTB DAILY, TAB 01/29/19 Insulin Detemir (Levemir Flextouch) 100 Unit/1 Ml Insuln.pen, 8 UNIT SQ DAILY, EA IF NPO GIVE 1/2 A DOSE 01/29/19 Calcitriol* (Calcitriol*) 0.5 Mcg Capsule, 0.5 MCG GTB DAILY, CAP 01/29/19 Magnesium Hydroxide* (Milk Of Magnesia*) 400 Mg/5 Ml Oral.susp, 30 ML GTB DAILY PRN for CONSTIPATION, ML 01/29/19 Bisacodyl (Laxative Suppository) 10 Mg Supp.rect, 10 MG RC DAILY PRN for CONSTIPATION, SUPP.RECT 01/29/19 Atorvastatin* (Atorvastatin*) 80 Mg Tablet, 80 MG GTB QHS, #30 TAB 01/29/19 Amlodipine Besylate* (Amlodipine Besylate*) 10 Mg Tablet, 10 MG GTB DAILY, #30 TAB HOLD IF SBP <110 OR HR <60 01/29/19 Medications Current Medications Sodium Chloride 1,000 ml @ 75 mls/hr [id number] IV Last administered on 01/29/19at 11:02; Admin Dose 75 MLS/HR; Start 01/29/19 at 09:53 IV Flush (NS 3 ml) 3 ml PER PROTOCOL IV ; Start 01/29/19 at 10:00 Ondansetron HCl (Zofran Inj) 4 mg Q6H PRN IV NAUSEA/VOMITING; Start 01/29/19 at 10:00 Morphine Sulfate (morphine) 2 mg Q4H PRN IV .PAIN 7-10; Start 01/29/19 at 10:00 Pantoprazole (Protonix Iv) 40 mg DAILY@06 IV ; Start 01/30/19 at 06:00 Acetaminophen 100 ml @ 400 mls/hr Q6H PRN IVPB fever/pain; Start 01/29/19 at 10:00; Stop 01/30/19 at 09:59 Vancomycin HCl (Vanco Iv Per Pharmacy) VANCOMYCIN PER PHARMACY PER PROTOCOL XX ; Start 01/29/19 at 10:00 Piperacillin Sod/ Tazobactam Sod 50 ml @ 100 mls/hr Q8 IVPB Last administered on 01/29/19at 15:26; Admin Dose 100 MLS/HR; Start 01/29/19 at 15:00 Diagnostic Test (Pha) (Accu-Chek) 1 ea 02 XX ; Start 01/30/19 at 02:00 Insulin Aspart (Novolog Insulin Pen) NOVOLOG *MILD* ALGORITHM Q4 SC ; Start 01/29/19 at 13:00 Miscellaneous Information 1 ea NOTE XX ; Start 01/29/19 at 11:30 Glucose (Glutose) 15 gm Q15M PRN PO DECREASED GLUCOSE; Start 01/29/19 at 11:30 Glucose (Glutose) 22.5 gm Q15M PRN PO DECREASED GLUCOSE; Start 01/29/19 at 11:30 Dextrose (D50w Syringe) 25 ml Q15M PRN IV DECREASED GLUCOSE; Start 01/29/19 at 11:30 Dextrose (D50w Syringe) 50 ml Q15M PRN IV DECREASED GLUCOSE; Start 01/29/19 at 11:30 Glucagon (Glucagen) 1 mg Q15M PRN IM DECREASED GLUCOSE; Start 01/29/19 at 11:30 Glucose (Glutose) 15 gm Q15M PRN BUCCAL DECREASED GLUCOSE; Start 01/29/19 at 11:30 Norepinephrine 250 ml @ 0 mls/hr TITRATE IV Last administered on 01/29/19at 12:21; Admin Dose 5.625 MLS/HR; Start 01/29/19 at 12:30 Allergies: Coded Allergies: No Known Allergy (Unverified , 01/29/19) Social History Smoking Status: Unknown if ever smoked Exam/Review of Systems Exam Vitals Vital Signs Date Temp Pulse Resp B/P (MAP) Pulse Ox O2 O2 Flow FiO2 Time Delivery Rate 01/29/19 106 30 110/48 100 Mechanical 18:40 (68) Ventilator 01/29/19 99.9 17:50 01/29/19 35 17:30 01/29/19 15 09:32 Eyes: nl conjunctiva, EOMI, nl lids, nl sclera, PERRL ENMT: nl external ears & nose, nl lips & teeth, nl nasal mucosa & septum Neck: supple, non-tender Respiratory: clear to auscultation, normal air movement Cardiovascular: regular rate and rhythm, nl pulses Gastrointestinal: soft, nl liver, spleen, non-tender Musculoskeletal: nl extremities to inspection, nl gait and stance Extremities: normal pulses Neurological: [employer] II-XII intact, nl mental status, nl speech, nl strength Additional Comments Arm is swollen and hard to palpate There is definitely a palpable radial pulse however each week Left arm forearm and fingers are warm to touch capillary refill is about 2 to 3 seconds There is 4+ edema in the left arm which is pitting Is also multiple blisters in the left forearm AV fistula in the left arm noted Results Result Diagram: 01/29/19 0847 01/29/19 0847 Results 24hrs Laboratory Tests Test 01/29/19 08:47 01/29/19 09:18 01/29/19 10:21 01/29/19 10:45 White Blood Count 22.4 H Red Blood Count 2.63 L Hemoglobin 7.3 L Hematocrit 24.2 L Mean Corpuscular 92.0 Volume Mean Corpuscular 27.8 L Hemoglobin Mean Corpuscular 30.2 L Hemoglobin Concen t Red Cell 16.7 H Distribution Width Platelet Count 303 Mean Platelet 9.7 Volume Immature 1.000 H Granulocytes % Neutrophils % Segmented 46 Neutrophils % (Manual) Band Neutrophils 42 H % (Manual) Lymphocytes % Lymphocytes % 1 L (Manual) Monocytes % Monocytes % 4 (Manual) Eosinophils % Basophils % Metamyelocytes % 5 H (manual) Myelocytes % 2 H (Manual) Nucleated Red 4 H Blood Cells % Immature 0.220 H Granulocytes # Neutrophils # Neutrophils # 12.4 H (Manual) Band Neutrophils 9.4 H # Lymphocytes 0.2 L (Manual) Lymphocytes # Monocytes # Monocytes # 0.8 (Manual) Eosinophils # Basophils # Metamyelocytes # 1.1 H Myelocytes # 0.4 H Nucleated Red Blood Cells # Platelet Estimate NORMAL Giant Platelets 1 H Polychromasia 1+ Poikilocytosis 2+ Anisocytosis 1+ Spherocytes 1+ Tear Drop Cells 1+ Ovalocytes 1+ Prothrombin Time 16.7 H Prothrombin Time 1.3 Ratio INR International 1.34 Normalized Ratio Activated 38.3 H Partial Thrombopl ast Time Sodium Level 140 Potassium Level 3.5 Chloride Level 102 Carbon Dioxide 16 L Level Anion Gap 22 H Blood Urea 101 H Nitrogen Creatinine 5.17 H Est Glomerular 8 L Filtrat Rate mL/min Glucose Level 317 H Calcium Level 8.9 Total Bilirubin 0.1 L Direct Bilirubin 0.00 Indirect 0.1 Bilirubin Aspartate Amino 27 Transf (AST/SGOT) Alanine 8 L Aminotransferase (ALT/SGPT) Alkaline 131 H Phosphatase Troponin I 0.040 Total Protein 6.7 Albumin 3.0 L Globulin 3.70 H Albumin/Globulin 0.81 Ratio Lipase 12 L POC Venous 5.9 *H Lactate Lactic Acid Level 7.7 *H Blood Gas Blood arterial Specimen Source Arterial Blood 01/29/2019 11:15: Date Drawn 13 AM Arterial Blood pH 7.392 (Temp corrected) Arterial Blood 23.2 L pCO2 (Temp correct) Arterial Blood 525.2 H pO2 (Temp corrected) Arterial Blood 13.8 L HCO3 Arterial Blood -10.0 L Base Excess Arterial Blood 99.8 H Oxygen Saturation Ben Test N/A Arterial Blood Right Brachial Gas Puncture Site Arterial 0.3 Blood Carboxyhemo globin Arterial Blood 0.5 Methemoglobin Blood Gas A-a O2 164.6 H Differential Oxyhemoglobin 99.0 Percent Blood Gas 37.0 Temperature Blood Gas 16.0 Respiration Rate Blood Gas Actual 26 Respiration Rate Blood Gas VENT - AC Modality FiO2 100.0 Blood Gas Tidal 450.0 Volume Blood Gas Low 5.0 PEEP Setting Blood Gas TM Notified Whom Blood Gas 01/29/2019 11:28: Notified Time 59 AM Test 01/29/19 13:20 01/29/19 14:36 Lactic Acid Level 6.8 *H Bedside Glucose 166 Medications Medication Current Medications Sodium Chloride 1,000 ml @ 75 mls/hr [id number] IV Last administered on 01/29/19at 11:02; Admin Dose 75 MLS/HR; Start 01/29/19 at 09:53 IV Flush (NS 3 ml) 3 ml PER PROTOCOL IV ; Start 01/29/19 at 10:00 Ondansetron HCl (Zofran Inj) 4 mg Q6H PRN IV NAUSEA/VOMITING; Start 01/29/19 at 10:00 Morphine Sulfate (morphine) 2 mg Q4H PRN IV .PAIN 7-10; Start 01/29/19 at 10:00 Pantoprazole (Protonix Iv) 40 mg DAILY@06 IV ; Start 01/30/19 at 06:00 Acetaminophen 100 ml @ 400 mls/hr Q6H PRN IVPB fever/pain; Start 01/29/19 at 10:00; Stop 01/30/19 at 09:59 Vancomycin HCl (Vanco Iv Per Pharmacy) VANCOMYCIN PER PHARMACY PER PROTOCOL XX ; Start 01/29/19 at 10:00 Piperacillin Sod/ Tazobactam Sod 50 ml @ 100 mls/hr Q8 IVPB Last administered on 01/29/19at 15:26; Admin Dose 100 MLS/HR; Start 01/29/19 at 15:00 Diagnostic Test (Pha) (Accu-Chek) 1 ea 02 XX ; Start 01/30/19 at 02:00 Insulin Aspart (Novolog Insulin Pen) NOVOLOG *MILD* ALGORITHM Q4 SC ; Start 01/29/19 at 13:00 Miscellaneous Information 1 ea NOTE XX ; Start 01/29/19 at 11:30 Glucose (Glutose) 15 gm Q15M PRN PO DECREASED GLUCOSE; Start 01/29/19 at 11:30 Glucose (Glutose) 22.5 gm Q15M PRN PO DECREASED GLUCOSE; Start 01/29/19 at 11:30 Dextrose (D50w Syringe) 25 ml Q15M PRN IV DECREASED GLUCOSE; Start 01/29/19 at 11:30 Dextrose (D50w Syringe) 50 ml Q15M PRN IV DECREASED GLUCOSE; Start 01/29/19 at 11:30 Glucagon (Glucagen) 1 mg Q15M PRN IM DECREASED GLUCOSE; Start 01/29/19 at 11:30 Glucose (Glutose) 15 gm Q15M PRN BUCCAL DECREASED GLUCOSE; Start 01/29/19 at 11:30 Norepinephrine 250 ml @ 0 mls/hr TITRATE IV Last administered on 01/29/19at 12:21; Admin Dose 5.625 MLS/HR; Start 01/29/19 at 12:30 CHANG SHINE MD January 29, 2019 19:03
[2019-01-29] MEDS ORDERED: HEPARIN 1000 UNITS/ML 10 ML INJ IV PRN ×2 (19:30→20:00)
[2019-01-29] MEDS ORDERED: HEPARIN 1000 UNITS/ML 10 ML INJ IV ONE (19:30)
[2019-01-29] MEDS ORDERED: CLINDAMYCIN 900 MG INJ IV ONE (19:30)
[2019-01-29] MEDS ORDERED: CLINDAMYCIN 900 MG/D5W (PMX) 50 ML IVPB SCH (19:38)
[2019-01-29] MEDS ORDERED: HEPARIN 25000 UNITS/250 ML 250 ML IV SCH (20:00)
[2019-01-29] MEDS ORDERED: PIPER-TAZO 2.25 GM/NS 50 ML IVPB SCH (20:00)
[2019-01-29] MEDS ORDERED: NA BICARBONATE 8.4% 50 ML SYG ONE (21:00)
[2019-01-29] MEDS ORDERED: EPINEPHrine 10 MCG/1ml (10 ML SYG) IV ONE (21:00)
[2019-01-29] MEDS ORDERED: ETOMIDATE 20 MG INJ ONE (21:00)
[2019-01-29] MEDS ORDERED: IOHEXOL 300MG/ML 150 ML BTL ONE (23:26)
[2019-01-29] MEDS ORDERED: SOD CHLORIDE 0.9% 100 ML ONE (23:26)
--- NOTE | 2019-01-29 23:39 | CONS ---
Assessment/Plan Assessment/Plan Hospital Course (Demo Recall) 1. Left upper extremity edema, induration with probable cellulitis, questionable necrotizing fasciitis versus deep thrombophlebitis 2. Sepsis with shock on pressors ? secondary to above versus line infection versus other 3. Significant leukocytosis ? secondary to above versus line infection versus other 4. Lactic acidosis ? secondary to above versus line infection versus other -IV antibiotics -IV fluids -Supportive measures -Stat Ortho consult -Elevate left upper extremity -Vascular -Panculture -ID 5. Diabetes, hypertension, dyslipidemia -Nutrition and medication optimization 6. Dysphagia on tube feeds normally 7. Questionable CVA, encephalopathy history -Medical optimization 8. Anemia -Close monitoring 9. End-stage renal disease on hemodialysis Thank you very much for consulting me in this patient's care, Consultation Date/Type/Reason Admit Date/Time Date of Consultation: January 29, 2019 Type of Consult General surgery Reason for Consultation 1. Left upper extremity swelling and blistering 2. Lactic acidosis 3. Leukocytosis 4. Sepsis on pressor Requesting Provider: TYE NUNEZ DO Date/Time of Note DATE: 01/29/19 TIME: 23:18 Hx of Present Illness Faye Alexander is a 58-year-old female with significant comorbidities from a skilled nurse facility who was found to be febrile, altered, with respiratory distress and was transferred to the emergency room for evaluation. She was hypotensive and intubated placed on pressors. Significant leukocytosis and lactic acidosis. Left upper extremity swollen and blistering. There is no blood per mouth or rectum. No blood per ostomy. No blood in urine. No cough. No seizure. No significant bloating. No change in bowel habits. General surgical consult is obtained further evaluation of the left upper extremity. 12 point review of systems otherwise negative unless addressed in chart Past Medical History Leukocytosis Lactic acidosis Sepsis with shock Respiratory requiring intubation End-stage renal disease Encephalopathy ?CVA Diabetes Hypertension Dyslipidemia GERD Dysphagia Anemia Home Meds Reported Medications Insulin Aspart* (Novolog Insulin Pen*) 100 Unit/Ml Soln, 0 SC Q4, EA 70-150 = 0 UNITS 151-200 = 2 UNITS 201-250 = 4 UNITS 251-300 = 6 UNITS 301-350 = 8 UNITS 351-400 =10 UNITS >400 = 12 UNITS AND CALL 01/29/19 Sodium Phosphate* (Phos-Nak*) 250 Mg/Pkt Soln, 250 MG GTB BID, PACKET [id number] 01/29/19 Lansoprazole* (Prevacid* Soltab) 30 Mg Tab, 30 MG GTB DAILY, TAB 01/29/19 Multivit/Ca Carb/B Cmplx/Fa* (Teresa-Sonido*) 1 Tab Tab, 1 TAB GTB DAILY, TAB 01/29/19 Calcium Carbonate* (Calcium Carbonate*) 600 MG Ca Tab, 600 MG GTB DAILY, TAB 01/29/19 Acetaminophen* (Acetaminophen*) 650 Mg Tablet, 650 MG GTB Q4 PRN for PAIN LEVEL 4-6 , #30 TAB 01/29/19 Ascorbic Acid* (Vitamin C*) 500 Mg Capsule.sa, 500 MG GTB DAILY, CAP 01/29/19 Zinc Sulfate* (Zinc Sulfate*) 220 Mg Tablet, 220 MG GTB DAILY, TAB 01/29/19 Insulin Detemir (Levemir Flextouch) 100 Unit/1 Ml Insuln.pen, 8 UNIT SQ DAILY, EA IF NPO GIVE 1/2 A DOSE 01/29/19 Calcitriol* (Calcitriol*) 0.5 Mcg Capsule, 0.5 MCG GTB DAILY, CAP 01/29/19 Magnesium Hydroxide* (Milk Of Magnesia*) 400 Mg/5 Ml Oral.susp, 30 ML GTB DAILY PRN for CONSTIPATION, ML 01/29/19 Bisacodyl (Laxative Suppository) 10 Mg Supp.rect, 10 MG RC DAILY PRN for CONSTIPATION, SUPP.RECT 01/29/19 Atorvastatin* (Atorvastatin*) 80 Mg Tablet, 80 MG GTB QHS, #30 TAB 01/29/19 Amlodipine Besylate* (Amlodipine Besylate*) 10 Mg Tablet, 10 MG GTB DAILY, #30 TAB HOLD IF SBP <110 OR HR <60 01/29/19 Medications Current Medications Sodium Chloride 1,000 ml @ 75 mls/hr [id number] IV Last administered on 01/29/19at 11:02; Admin Dose 75 MLS/HR; Start 01/29/19 at 09:53 IV Flush (NS 3 ml) 3 ml PER PROTOCOL IV ; Start 01/29/19 at 10:00 Ondansetron HCl (Zofran Inj) 4 mg Q6H PRN IV NAUSEA/VOMITING; Start 01/29/19 at 10:00 Morphine Sulfate (morphine) 2 mg Q4H PRN IV .PAIN 7-10; Start 01/29/19 at 10:00 Pantoprazole (Protonix Iv) 40 mg DAILY@06 IV ; Start 01/30/19 at 06:00 Acetaminophen 100 ml @ 400 mls/hr Q6H PRN IVPB fever/pain; Start 01/29/19 at 10:00; Stop 01/30/19 at 09:59 Vancomycin HCl (Vanco Iv Per Pharmacy) VANCOMYCIN PER PHARMACY PER PROTOCOL XX ; Start 01/29/19 at 10:00 Piperacillin Sod/ Tazobactam Sod 50 ml @ 100 mls/hr Q8 IVPB Last administered on 01/29/19at 15:26; Admin Dose 100 MLS/HR; Start 01/29/19 at 15:00 Diagnostic Test (Pha) (Accu-Chek) 1 ea 02 XX ; Start 01/30/19 at 02:00 Insulin Aspart (Novolog Insulin Pen) NOVOLOG *MILD* ALGORITHM Q4 SC ; Start 01/29/19 at 13:00 Miscellaneous Information 1 ea NOTE XX ; Start 01/29/19 at 11:30 Glucose (Glutose) 15 gm Q15M PRN PO DECREASED GLUCOSE; Start 01/29/19 at 11:30 Glucose (Glutose) 22.5 gm Q15M PRN PO DECREASED GLUCOSE; Start 01/29/19 at 11:30 Dextrose (D50w Syringe) 25 ml Q15M PRN IV DECREASED GLUCOSE; Start 01/29/19 at 11:30 Dextrose (D50w Syringe) 50 ml Q15M PRN IV DECREASED GLUCOSE; Start 01/29/19 at 11:30 Glucagon (Glucagen) 1 mg Q15M PRN IM DECREASED GLUCOSE; Start 01/29/19 at 11:30 Glucose (Glutose) 15 gm Q15M PRN BUCCAL DECREASED GLUCOSE; Start 01/29/19 at 11:30 Norepinephrine 250 ml @ 0 mls/hr TITRATE IV Last administered on 01/29/19at 12:21; Admin Dose 5.625 MLS/HR; Start 01/29/19 at 12:30 Heparin Sodium (Porcine) (Heparin (1000 Units/ml)) 4,000 unit PER PROTOCOL PRN IV aPTT<47; Start 01/29/19 at 19:30 Heparin Sodium (Porcine) (Heparin (1000 Units/ml)) 2,000 unit PER PROTOCOL PRN IV aPTT<47-57; Start 01/29/19 at 20:00 Heparin Sodium (Porcine) 250 ml @ 9 mls/hr PER PROTOCOL IV Last administered on 01/29/19at 21:05; Admin Dose 9 MLS/HR; Start 01/29/19 at 20:00 Allergies: Coded Allergies: No Known Allergy (Unverified , 01/29/19) Past Surgical History Left femoral dialysis catheter placement AVF Colostomy PEG Family History Significant Family History: no pertinent family hx Social History No current alcohol drugs or tobacco. Nursing facility patient. Smoking Status: Never smoker Exam/Review of Systems Exam Vitals Vital Signs Date Temp Pulse Resp B/P (MAP) Pulse Ox O2 O2 Flow FiO2 Time Delivery Rate 01/29/19 104 29 101/44 100 Mechanical 22:45 (63) Ventilator 01/29/19 35 22:12 01/29/19 98.8 21:30 01/29/19 15 09:32 Constitutional: No alert, No oriented Psych: confusion Head: normocephalic, atraumatic Eyes: nl conjunctiva; No icteric ENMT: nl external ears & nose, nl lips & teeth, intubated; No mucosa pink and moist Neck: jvd Respiratory: No congested cough, No labored breathing, No wheezing Cardiovascular: edema (Generalized but mostly left upper extremity); No regular rate and rhythm Gastrointestinal: soft, non-tender, distended (Normal), other (PEG. Left lower quadrant ostomy, pink) Musculoskeletal: No nl extremities to inspection (Left upper extremity with edema and induration (nonbloody). Blistering with some skin coming off.), No nl gait and stance, No range of motion Extremities: edema, pitting pedal edema; No normal pulses (Nonpalpable pulses in left upper extremity however Doppler signals strong), No calf tenderness Neurological: No nl mental status, No nl speech, No nl strength Skin: rash or lesions (Left upper extremity edema, induration, blistering); No nl turgor, No diaphoresis Lymph: nontender Results Result Diagram: 01/29/19203801/29/19 0847 Results 24hrs Laboratory Tests Test 01/29/19 08:47 01/29/19 09:18 01/29/19 10:21 01/29/19 10:45 White Blood Count 22.4 H Red Blood Count 2.63 L Hemoglobin 7.3 L Hematocrit 24.2 L Mean Corpuscular 92.0 Volume Mean Corpuscular 27.8 L Hemoglobin Mean Corpuscular 30.2 L Hemoglobin Concen t Red Cell 16.7 H Distribution Width Platelet Count 303 Mean Platelet 9.7 Volume Immature 1.000 H Granulocytes % Neutrophils % Segmented 46 Neutrophils % (Manual) Band Neutrophils 42 H % (Manual) Lymphocytes % Lymphocytes % 1 L (Manual) Monocytes % Monocytes % 4 (Manual) Eosinophils % Basophils % Metamyelocytes % 5 H (manual) Myelocytes % 2 H (Manual) Nucleated Red 4 H Blood Cells % Immature 0.220 H Granulocytes # Neutrophils # Neutrophils # 12.4 H (Manual) Band Neutrophils 9.4 H # Lymphocytes 0.2 L (Manual) Lymphocytes # Monocytes # Monocytes # 0.8 (Manual) Eosinophils # Basophils # Metamyelocytes # 1.1 H Myelocytes # 0.4 H Nucleated Red Blood Cells # Platelet Estimate NORMAL Giant Platelets 1 H Polychromasia 1+ Poikilocytosis 2+ Anisocytosis 1+ Spherocytes 1+ Tear Drop Cells 1+ Ovalocytes 1+ Prothrombin Time 16.7 H Prothrombin Time 1.3 Ratio INR International 1.34 Normalized Ratio Activated 38.3 H Partial Thrombopl ast Time Sodium Level 140 Potassium Level 3.5 Chloride Level 102 Carbon Dioxide 16 L Level Anion Gap 22 H Blood Urea 101 H Nitrogen Creatinine 5.17 H Est Glomerular 8 L Filtrat Rate mL/min Glucose Level 317 H Calcium Level 8.9 Total Bilirubin 0.1 L Direct Bilirubin 0.00 Indirect 0.1 Bilirubin Aspartate Amino 27 Transf (AST/SGOT) Alanine 8 L Aminotransferase (ALT/SGPT) Alkaline 131 H Phosphatase Troponin I 0.040 Total Protein 6.7 Albumin 3.0 L Globulin 3.70 H Albumin/Globulin 0.81 Ratio Lipase 12 L POC Venous 5.9 *H Lactate Lactic Acid Level 7.7 *H Blood Gas Blood arterial Specimen Source Arterial Blood 01/29/2019 11:15: Date Drawn 13 AM Arterial Blood pH 7.392 (Temp corrected) Arterial Blood 23.2 L pCO2 (Temp correct) Arterial Blood 525.2 H pO2 (Temp corrected) Arterial Blood 13.8 L HCO3 Arterial Blood -10.0 L Base Excess Arterial Blood 99.8 H Oxygen Saturation Ben Test N/A Arterial Blood Right Brachial Gas Puncture Site Arterial 0.3 Blood Carboxyhemo globin Arterial Blood 0.5 Methemoglobin Blood Gas A-a O2 164.6 H Differential Oxyhemoglobin 99.0 Percent Blood Gas 37.0 Temperature Blood Gas 16.0 Respiration Rate Blood Gas Actual 26 Respiration Rate Blood Gas VENT - AC Modality FiO2 100.0 Blood Gas Tidal 450.0 Volume Blood Gas Low 5.0 PEEP Setting Blood Gas TM Notified Whom Blood Gas 01/29/2019 11:28: Notified Time 59 AM Test 01/29/19 13:20 01/29/19 14:36 01/29/19 19:10 01/29/19 20:39 Lactic Acid Level 6.8 *H 11.1 *H Bedside Glucose 166 151 White Blood Count 17.8 #H Red Blood Count 2.49 L Hemoglobin 7.0 L Hematocrit 23.3 L Mean Corpuscular 93.6 Volume Mean Corpuscular 28.1 L Hemoglobin Mean Corpuscular 30.0 L Hemoglobin Concen t Red Cell 17.1 H Distribution Width Platelet Count 219 # Mean Platelet 10.0 Volume Immature 3.300 H Granulocytes % Neutrophils % Segmented 38 L Neutrophils % (Manual) Band Neutrophils 47 H % (Manual) Lymphocytes % Lymphocytes % 1 L (Manual) Monocytes % Monocytes % 11 (Manual) Eosinophils % Eosinophils % 1 (Manual) Basophils % Metamyelocytes % 2 H (manual) Nucleated Red 2 H Blood Cells % Immature 0.590 H Granulocytes # Neutrophils # Neutrophils # 8.2 H (Manual) Band Neutrophils 8.3 H # Lymphocytes 0.1 L (Manual) Lymphocytes # Monocytes # Monocytes # 1.9 H (Manual) Eosinophils # Basophils # Metamyelocytes # 0.3 H Nucleated Red Blood Cells # Platelet Estimate NORMAL Giant Platelets 1 H Polychromasia 1+ Poikilocytosis 3+ Anisocytosis 2+ Macrocytosis 1+ Ovalocytes 1+ Prothrombin Time 19.7 H Prothrombin Time 1.5 Ratio INR International 1.66 Normalized Ratio Activated 40.3 H Partial Thrombopl ast Time Creatine Kinase 382 H Test 01/29/19 21:08 Bedside Glucose 144 Medications Medication Current Medications Sodium Chloride 1,000 ml @ 75 mls/hr [id number] IV Last administered on 01/29/19at 11:02; Admin Dose 75 MLS/HR; Start 01/29/19 at 09:53 IV Flush (NS 3 ml) 3 ml PER PROTOCOL IV ; Start 01/29/19 at 10:00 Ondansetron HCl (Zofran Inj) 4 mg Q6H PRN IV NAUSEA/VOMITING; Start 01/29/19 at 10:00 Morphine Sulfate (morphine) 2 mg Q4H PRN IV .PAIN 7-10; Start 01/29/19 at 10:00 Pantoprazole (Protonix Iv) 40 mg DAILY@06 IV ; Start 01/30/19 at 06:00 Acetaminophen 100 ml @ 400 mls/hr Q6H PRN IVPB fever/pain; Start 01/29/19 at 10:00; Stop 01/30/19 at 09:59 Vancomycin HCl (Vanco Iv Per Pharmacy) VANCOMYCIN PER PHARMACY PER PROTOCOL XX ; Start 01/29/19 at 10:00 Piperacillin Sod/ Tazobactam Sod 50 ml @ 100 mls/hr Q8 IVPB Last administered on 01/29/19at 15:26; Admin Dose 100 MLS/HR; Start 01/29/19 at 15:00 Diagnostic Test (Pha) (Accu-Chek) 1 ea 02 XX ; Start 01/30/19 at 02:00 Insulin Aspart (Novolog Insulin Pen) NOVOLOG *MILD* ALGORITHM Q4 SC ; Start 01/29/19 at 13:00 Miscellaneous Information 1 ea NOTE XX ; Start 01/29/19 at 11:30 Glucose (Glutose) 15 gm Q15M PRN PO DECREASED GLUCOSE; Start 01/29/19 at 11:30 Glucose (Glutose) 22.5 gm Q15M PRN PO DECREASED GLUCOSE; Start 01/29/19 at 11:30 Dextrose (D50w Syringe) 25 ml Q15M PRN IV DECREASED GLUCOSE; Start 01/29/19 at 11:30 Dextrose (D50w Syringe) 50 ml Q15M PRN IV DECREASED GLUCOSE; Start 01/29/19 at 11:30 Glucagon (Glucagen) 1 mg Q15M PRN IM DECREASED GLUCOSE; Start 01/29/19 at 11:30 Glucose (Glutose) 15 gm Q15M PRN BUCCAL DECREASED GLUCOSE; Start 01/29/19 at 11:30 Norepinephrine 250 ml @ 0 mls/hr TITRATE IV Last administered on 01/29/19at 12:21; Admin Dose 5.625 MLS/HR; Start 01/29/19 at 12:30 Heparin Sodium (Porcine) (Heparin (1000 Units/ml)) 4,000 unit PER PROTOCOL PRN IV aPTT<47; Start 01/29/19 at 19:30 Heparin Sodium (Porcine) (Heparin (1000 Units/ml)) 2,000 unit PER PROTOCOL PRN IV aPTT<47-57; Start 01/29/19 at 20:00 Heparin Sodium (Porcine) 250 ml @ 9 mls/hr PER PROTOCOL IV Last administered on 01/29/19at 21:05; Admin Dose 9 MLS/HR; Start 01/29/19 at 20:00 AARON AYALA MD January 29, 2019 23:29
[2019-01-30] VITALS (50 sets, daily range): BP systolic 37–150; BP diastolic 27–59; PULSE 54–107; RESP 8–34
[2019-01-30] MEDS: NORepinephrine 8MG/250 ML (PMX 250 ML IV SCH ×3 (00:07→09:32)
[2019-01-30] MEDS: PIPER-TAZO 2.25 GM/NS 50 ML IVPB SCH ×2 (00:09→05:41)
[2019-01-30] MEDS: SOD CHLORIDE 0.9% 1,000 ML IV SCH (00:26)
[2019-01-30] MEDS ORDERED: PHENYLephrine 20MG IN 250 ML 250 ML ONE (00:26)
[2019-01-30] MEDS: PHENYLephrine 20MG IN 250 ML 250 ML IV SCH ×2 (00:34→07:08)
[2019-01-30] MEDS: INSULIN ASPART [NOVOLOG] 3 ML PEN SC SCH ×3 (01:00→10:41)
[2019-01-30] MEDS ORDERED: ACCU-CHEK XX SCH (02:00)
[2019-01-30] MEDS ORDERED: PANTOPRAZOLE 40 MG INJ IV SCH (06:00)
[2019-01-30] MEDS ORDERED: NA BICARBONATE 8.4% 50 ML SYG IV STA ×3 (06:46→11:05)
[2019-01-30] MEDS ORDERED: SODIUM BICARBONATE (IV ADD) 150 MEQ in DEXTROSE 5% 850 ML IV SCH (07:30)
--- NOTE | 2019-01-30 07:45 | CONS ---
Consult Date/Type/Reason Admit Date/Time January 29, 2019 at 09:58 Initial Consult Date 01/29/19 Requesting Provider: TYE NUNEZ DO Date/Time of Note DATE: 01/30/19 TIME: 07:33 Subjective Interventional cardiology follow-up progress note/ Critical care note Subjective: Discussed with the staff . Discussed with multiple physicians. Telemetry was reviewed. Patient remains in normal sinus rhythm intermittent junctional rhythm. Heart rate has remained stable though Patient remains hypotensive and currently on 2 pressors. Is on Levophed and Chris-Synephrine drip. Intubated on the vent in the ICU. She has been started on heparin drip for concern about the upper extremity DVT. No acute bleeding is reported Patient is nonverbal on the vent Objective: General: Thin female s/p intubation on the vent HEENT: NC/AT. pupils are equal. round. NECK: . no stridor. CV: RRR. systolic murmur; no gallop or rubs. PULM: no wheezing , + diffuse rhonchi. GI: SOFT, status post colostomy in place Extremity: No significant LE edema but appears contracted. there is significant upper extremity edema including blistering of the left upper extremity neuro: does not answer question Psych: calm rectal: deferred : deferred. s/p Fem central line placement EKG was personally reviewed shows sinus tachycardia Echocardiogram was personally reviewed which shows: Chest x-ray shows: 01/30/2019 CT scan has shown: 1. Extensive soft tissue swelling and subcutaneous edema over the left upper extremity, with scattered deep subcutaneous fluid. 2. No air is seen within the soft tissues of the left upper extremity to suggest necrotizing fasciitis. 3. No definite fascial enhancement or fascial thickening is identified. 4. Nevertheless, imaging plays a limited roll in the diagnosis and management of necrotizing fasciitis. No imaging modality can reliably exclude underlying ne crotizing fasciitis in the absence of soft tissue gas, and a negative study should not preclude obtaining a tissue biopsy. 5. A contrast enhanced MRI examination, including T1 and T2-weighted images, would be more sensitive and specific. 6. Occlusion of dialysis graft is again seen, which appears collapsed proximally. 7. Enhancing pseudoaneurysm is seen at the antecubital fossa concordant with iman morrow's ultrasound findings. 8. Left axillary and subpectoral adenopathy is again seen. 9. Skin thickening again seen over the left breast. Objective Vitals Vital Signs Date Temp Pulse Resp B/P (MAP) Pulse Ox O2 O2 Flow FiO2 Time Delivery Rate 01/30/19 103 30 130/44 100 Mechanical 07:00 (72) Ventilator 01/30/19 30 05:38 01/30/19 99.6 04:00 01/29/19 15 09:32 Intake and Output 01/29/19 01/29/19 01/30/19 1515:00 23:00 07:00 IntakeIntake Total 1350 ml 270.37 ml 1266.95 ml OutputOutput Total 0 ml 0 ml BalanceBalance 1350 ml 270.37 ml 1266.95 ml Results/Medications Result Diagram: 01/30/19 0400 01/30/19 0400 Results 24 hrs Laboratory Tests Test 01/29/19 08:47 01/29/19 09:18 01/29/19 10:21 01/29/19 10:45 White Blood 22.4 H Count Red Blood Count 2.63 L Hemoglobin 7.3 L Hematocrit 24.2 L Mean Corpuscular 92.0 Volume Mean Corpuscular 27.8 L Hemoglobin Mean Corpuscular 30.2 L Hemoglobin Georgette nt Red Cell 16.7 H Distribution Width Platelet Count 303 Mean Platelet 9.7 Volume Immature 1.000 H Granulocytes % Neutrophils % Segmented 46 Neutrophils % (Manual) Band Neutrophils 42 H % (Manual) Lymphocytes % Lymphocytes % 1 L (Manual) Monocytes % Monocytes % 4 (Manual) Eosinophils % Basophils % Metamyelocytes % 5 H (manual) Myelocytes % 2 H (Manual) Nucleated Red 4 H Blood Cells % Immature 0.220 H Granulocytes # Neutrophils # Neutrophils # 12.4 H (Manual) Band Neutrophils 9.4 H # Lymphocytes 0.2 L (Manual) Lymphocytes # Monocytes # Monocytes # 0.8 (Manual) Eosinophils # Basophils # Metamyelocytes # 1.1 H Myelocytes # 0.4 H Nucleated Red Blood Cells # Platelet NORMAL Estimate Giant Platelets 1 H Polychromasia 1+ Poikilocytosis 2+ Anisocytosis 1+ Spherocytes 1+ Tear Drop Cells 1+ Ovalocytes 1+ Prothrombin Time 16.7 H Prothrombin Time 1.3 Ratio INR 1.34 International Normalized Ratio Activated 38.3 H Partial Thrombop last Time Sodium Level 140 Potassium Level 3.5 Chloride Level 102 Carbon Dioxide 16 L Level Anion Gap 22 H Blood Urea 101 H Nitrogen Creatinine 5.17 H Est Glomerular 8 L Filtrat Rate mL/min Glucose Level 317 H Calcium Level 8.9 Total Bilirubin 0.1 L Direct Bilirubin 0.00 Indirect 0.1 Bilirubin Aspartate Amino 27 Transf (AST/SGOT ) Alanine 8 L Aminotransferase (ALT/SGPT) Alkaline 131 H Phosphatase Troponin I 0.040 Total Protein 6.7 Albumin 3.0 L Globulin 3.70 H Albumin/Globulin 0.81 Ratio Lipase 12 L POC Venous 5.9 *H Lactate Lactic Acid 7.7 *H Level Blood Gas Blood arterial Specimen Source Arterial Blood 01/29/2019 11:15 Date Drawn :13 AM Arterial Blood 7.392 pH (Temp corrected) Arterial Blood 23.2 L pCO2 (Temp correct) Arterial Blood 525.2 H pO2 (Temp corrected) Arterial Blood 13.8 L HCO3 Arterial Blood -10.0 L Base Excess Arterial Blood 99.8 H Oxygen Saturatio n Ben Test N/A Arterial Blood Right Brachial Gas Puncture Site Arterial 0.3 Blood Carboxyhem oglobin Arterial Blood 0.5 Methemoglobin Blood Gas A-a O2 164.6 H Differential Oxyhemoglobin 99.0 Percent Blood Gas 37.0 Temperature Blood Gas 16.0 Respiration Rate Blood Gas Actual 26 Respiration Rate Blood Gas VENT - AC Modality FiO2 100.0 Blood Gas Tidal 450.0 Volume Blood Gas Low 5.0 PEEP Setting Blood Gas TM Notified Whom Blood Gas 01/29/2019 11:28 Notified Time :59 AM Test 01/29/19 13:20 01/29/19 14:36 01/29/19 19:10 01/29/19 20:39 Lactic Acid 6.8 *H 11.1 *H Level Bedside Glucose 166 151 White Blood 17.8 #H Count Red Blood Count 2.49 L Hemoglobin 7.0 L Hematocrit 23.3 L Mean Corpuscular 93.6 Volume Mean Corpuscular 28.1 L Hemoglobin Mean Corpuscular 30.0 L Hemoglobin Georgette nt Red Cell 17.1 H Distribution Width Platelet Count 219 # Mean Platelet 10.0 Volume Immature 3.300 H Granulocytes % Neutrophils % Segmented 38 L Neutrophils % (Manual) Band Neutrophils 47 H % (Manual) Lymphocytes % Lymphocytes % 1 L (Manual) Monocytes % Monocytes % 11 (Manual) Eosinophils % Eosinophils % 1 (Manual) Basophils % Metamyelocytes % 2 H (manual) Nucleated Red 2 H Blood Cells % Immature 0.590 H Granulocytes # Neutrophils # Neutrophils # 8.2 H (Manual) Band Neutrophils 8.3 H # Lymphocytes 0.1 L (Manual) Lymphocytes # Monocytes # Monocytes # 1.9 H (Manual) Eosinophils # Basophils # Metamyelocytes # 0.3 H Nucleated Red Blood Cells # Platelet NORMAL Estimate Giant Platelets 1 H Polychromasia 1+ Poikilocytosis 3+ Anisocytosis 2+ Macrocytosis 1+ Ovalocytes 1+ Prothrombin Time 19.7 H Prothrombin Time 1.5 Ratio INR 1.66 International Normalized Ratio Activated 40.3 H Partial Thrombop last Time Creatine Kinase 382 H Test 01/29/19 21:08 01/30/19 02:02 01/30/19 04:00 01/30/19 05:36 Bedside Glucose 144 163 179 White Blood 32.2 #H Count Red Blood Count 2.45 L Hemoglobin 6.8 *L Hematocrit 23.3 L Mean Corpuscular 95.1 Volume Mean Corpuscular 27.8 L Hemoglobin Mean Corpuscular 29.2 L Hemoglobin Georgette nt Red Cell 17.5 H Distribution Width Platelet Count 233 Mean Platelet 10.7 H Volume Immature 3.400 H Granulocytes % Neutrophils % Segmented 47 Neutrophils % (Manual) Band Neutrophils 25 H % (Manual) Lymphocytes % Lymphocytes % 5 L (Manual) Monocytes % Monocytes % 10 (Manual) Eosinophils % Basophils % Metamyelocytes % 12 H (manual) Myelocytes % 1 H (Manual) Nucleated Red 7 H Blood Cells % Immature 1.090 H Granulocytes # Neutrophils # Neutrophils # 17.7 H (Manual) Band Neutrophils 8.0 H # Lymphocytes 1.6 (Manual) Lymphocytes # Monocytes # Monocytes # 3.2 H (Manual) Eosinophils # Basophils # Metamyelocytes # 3.8 H Myelocytes # 0.3 H Nucleated Red Blood Cells # Platelet NORMAL Estimate Polychromasia 3+ Poikilocytosis 3+ Anisocytosis 2+ Macrocytosis 1+ Acanthocytes 2+ Activated 135.8 *H Partial Thrombop last Time Sodium Level 141 Potassium Level 3.7 Chloride Level 109 Carbon Dioxide 9 #*L Level Anion Gap 23 H Blood Urea 96 H Nitrogen Creatinine 4.58 H Est Glomerular 10 L Filtrat Rate mL/min Glucose Level 167 # Hemoglobin A1c 6.9 H Lactic Acid 10.1 *H Level Calcium Level 7.8 L Phosphorus Level 3.1 Magnesium Level 2.1 Total Bilirubin 0.1 L Direct Bilirubin 0.00 Indirect 0.1 Bilirubin Aspartate Amino 123 H Transf (AST/SGOT ) Alanine 65 Aminotransferase (ALT/SGPT) Alkaline 103 Phosphatase Total Protein 5.5 #L Albumin 2.3 L Globulin 3.20 Albumin/Globulin 0.71 Ratio Triglycerides 280 H Level Cholesterol 52 L Level LDL Cholesterol, Calculated HDL Cholesterol 13 L Cholesterol/HDL 4.0 Ratio Thyroid 0.429 L Stimulating Hormone (TSH) Test 01/30/19 06:00 Blood Gas Blood arterial Specimen Source Arterial Blood 01/30/2019 6:10: Date Drawn 38 AM Arterial Blood 7.156 *L pH (Temp corrected) Arterial Blood 17.7 L pCO2 (Temp correct) Arterial Blood 131.5 H pO2 (Temp corrected) Arterial Blood 6.1 *L HCO3 Arterial Blood -20.8 L Base Excess Arterial Blood 98.1 H Oxygen Saturatio n Ben Test N/A Arterial Blood Right Brachial Gas Puncture Site Arterial 0.4 Blood Carboxyhem oglobin Arterial Blood 0.8 Methemoglobin Blood Gas A-a O2 61.6 H Differential Oxyhemoglobin 96.9 Percent Blood Gas 37.0 Temperature Blood Gas 20.0 Respiration Rate Blood Gas Actual 26 Respiration Rate Blood Gas VENT - AC Modality FiO2 30.0 Blood Gas Tidal 450.0 Volume Blood Gas Low 5.0 PEEP Setting Blood Gas CMEIKLE RN Critical Value Read Back Blood Gas TM Notified Whom Blood Gas 01/30/2019 6:39: Notified Time 55 AM Home Meds Reported Medications Insulin Aspart* (Novolog Insulin Pen*) 100 Unit/Ml Soln, 0 SC Q4, EA 70-150 = 0 UNITS 151-200 = 2 UNITS 201-250 = 4 UNITS 251-300 = 6 UNITS 301-350 = 8 UNITS 351-400 =10 UNITS >400 = 12 UNITS AND CALL 01/29/19 Sodium Phosphate* (Phos-Nak*) 250 Mg/Pkt Soln, 250 MG GTB BID, PACKET [phone] 01/29/19 Lansoprazole* (Prevacid* Soltab) 30 Mg Tab, 30 MG GTB DAILY, TAB 01/29/19 Multivit/Ca Carb/B Cmplx/Fa* (Teresa-Sonido*) 1 Tab Tab, 1 TAB GTB DAILY, TAB 01/29/19 Calcium Carbonate* (Calcium Carbonate*) 600 MG Ca Tab, 600 MG GTB DAILY, TAB 01/29/19 Acetaminophen* (Acetaminophen*) 650 Mg Tablet, 650 MG GTB Q4 PRN for PAIN LEVEL 4-6 , #30 TAB 01/29/19 Ascorbic Acid* (Vitamin C*) 500 Mg Capsule.sa, 500 MG GTB DAILY, CAP 01/29/19 Zinc Sulfate* (Zinc Sulfate*) 220 Mg Tablet, 220 MG GTB DAILY, TAB 01/29/19 Insulin Detemir (Levemir Flextouch) 100 Unit/1 Ml Insuln.pen, 8 UNIT SQ DAILY, EA IF NPO GIVE 1/2 A DOSE 01/29/19 Calcitriol* (Calcitriol*) 0.5 Mcg Capsule, 0.5 MCG GTB DAILY, CAP 01/29/19 Magnesium Hydroxide* (Milk Of Magnesia*) 400 Mg/5 Ml Oral.susp, 30 ML GTB DAILY PRN for CONSTIPATION, ML 01/29/19 Bisacodyl (Laxative Suppository) 10 Mg Supp.rect, 10 MG RC DAILY PRN for CONSTIPATION, SUPP.RECT 01/29/19 Atorvastatin* (Atorvastatin*) 80 Mg Tablet, 80 MG GTB QHS, #30 TAB 01/29/19 Amlodipine Besylate* (Amlodipine Besylate*) 10 Mg Tablet, 10 MG GTB DAILY, #30 TAB HOLD IF SBP <110 OR HR <60 01/29/19 Medications Current Medications Sodium Chloride 1,000 ml @ 75 mls/hr [id number] IV Last administered on 01/30/19at 00:26; Admin Dose 75 MLS/HR; Start 01/29/19 at 09:53; Status Hold IV Flush (NS 3 ml) 3 ml PER PROTOCOL IV ; Start 01/29/19 at 10:00 Ondansetron HCl (Zofran Inj) 4 mg Q6H PRN IV NAUSEA/VOMITING; Start 01/29/19 at 10:00 Morphine Sulfate (morphine) 2 mg Q4H PRN IV .PAIN 7-10; Start 01/29/19 at 10:00 Pantoprazole (Protonix Iv) 40 mg DAILY@06 IV Last administered on 01/30/19at 05:41; Admin Dose 40 MG; Start 01/30/19 at 06:00 Acetaminophen 100 ml @ 400 mls/hr Q6H PRN IVPB fever/pain; Start 01/29/19 at 10:00; Stop 01/30/19 at 09:59 Vancomycin HCl (Vanco Iv Per Pharmacy) VANCOMYCIN PER PHARMACY PER PROTOCOL XX ; Start 01/29/19 at 10:00 Piperacillin Sod/ Tazobactam Sod 50 ml @ 100 mls/hr Q8 IVPB Last administered on 01/30/19at 05:41; Admin Dose 100 MLS/HR; Start 01/29/19 at 15:00 Diagnostic Test (Pha) (Accu-Chek) 1 ea 02 XX Last administered on 01/30/19at 02:04; Admin Dose 1 EA; Start 01/30/19 at 02:00 Insulin Aspart (Novolog Insulin Pen) NOVOLOG *MILD* ALGORITHM Q4 SC ; Start 01/29/19 at 13:00 Miscellaneous Information 1 ea NOTE XX ; Start 01/29/19 at 11:30 Glucose (Glutose) 15 gm Q15M PRN PO DECREASED GLUCOSE; Start 01/29/19 at 11:30 Glucose (Glutose) 22.5 gm Q15M PRN PO DECREASED GLUCOSE; Start 01/29/19 at 11:30 Dextrose (D50w Syringe) 25 ml Q15M PRN IV DECREASED GLUCOSE; Start 01/29/19 at 11:30 Dextrose (D50w Syringe) 50 ml Q15M PRN IV DECREASED GLUCOSE; Start 01/29/19 at 11:30 Glucagon (Glucagen) 1 mg Q15M PRN IM DECREASED GLUCOSE; Start 01/29/19 at 11:30 Glucose (Glutose) 15 gm Q15M PRN BUCCAL DECREASED GLUCOSE; Start 01/29/19 at 11:30 Norepinephrine 250 ml @ 0 mls/hr TITRATE IV Last administered on 01/30/19at 03:44; Admin Dose 41.25 MLS/HR; Start 01/29/19 at 12:30 Heparin Sodium (Porcine) (Heparin (1000 Units/ml)) 4,000 unit PER PROTOCOL PRN IV aPTT<47; Start 01/29/19 at 19:30 Heparin Sodium (Porcine) (Heparin (1000 Units/ml)) 2,000 unit PER PROTOCOL PRN IV aPTT<47-57; Start 01/29/19 at 20:00 Heparin Sodium (Porcine) 250 ml @ 9 mls/hr PER PROTOCOL IV Last administered on 01/29/19at 21:05; Admin Dose 9 MLS/HR; Start 01/29/19 at 20:00 Phenylephrine HCl 250 ml @ 75 mls/hr TITRATE IV Last administered on 01/30/19at 07:08; Admin Dose 112.5 MLS/HR; Start 01/30/19 at 00:30 Sodium Bicarbonate 150 meq/Dextrose 1,000 ml @ 75 mls/hr [id number] IV ; Start 01/30/19 at 07:30 Assessment/Plan Hospital Course (Demo Recall) septic shock /. Severe sepsis Hypoxemic respiratory failure status post intubation on the vent Renal failure on dialysis Left upper extremity cellulitis. ?DVT , ? necrotizing fasciitis History of hypertension: Currently hypotensive and on shock Diabetes Severe metabolic acidosis/ lactic acidosis Encephalopathy Fever due to above Severe anemia Questionable history of prior CVA Status post colostomy Arrhythmias with sinus tachycardia and intermittent junctional rhythm Recommendation: Antibiotic as per internal medicine. Continue with the vent support. Levophed will be continued and adjusted as needed. Hemodialysis as tolerated by renal. Correction of electrolytes through hemodia lysis CT of the arm done already and patient has already been evaluated by vascular as well as general surgery consultation Vascular surgery to be consulted. transfuse prn. will defer to IM. RENAL Off of aspirin given her severe anemia. Currently on heparin. Monitor for any active bleeding site Patient will be will be closely monitored n intensive care unit Condition is guarded More than 35 minutes critical care time was spent treatment management this patient excluding any procedures. Thank you for this referral. We will continue to follow along with you LILIANA LAN MD [facility] LILIANA LAN MD January 30, 2019 07:43
--- NOTE | 2019-01-30 08:09 | HKNOTE ---
DATE OF SERVICE: TYPE OF CONSULTATION: Infectious disease. REQUESTING PHYSICIAN: Dr. Cannon. I am seeing this patient for Dr. William Younger. HISTORY OF PRESENT ILLNESS: The patient is a 58-year-old [place]o- female who was admitted from a alf facility with hypotension and altered mental status. Upon arrival, it was determin ed that she was hypotensive and required intubation and hanging of a Levophed drip. Upon arrival, th e temperature was 100.8, pulse 106, respirations 30, blood pressure 110/48, pulse oximetry 100% on a mechanical respirator. The white blood cell count was initially 17,800, which soon brandon to 22,400, h emoglobin 7 grams, hematocrit 23%, platelet count 219,000. The differential included 46 polys, 42 ba nds, 5 metamyelocytes, 2 myelocytes, 1 lymphocyte and 4 monocytes. There was a 5.9% nucleated red bl ood cells. Chest x-ray revealed coronary stents, cleared lungs, chronic changes in the lungs, but no infiltrate and stent in the right axilla. CT scan of the abdomen revealed the patient to be status post appendectomy and a left femoral dialysis catheter was present. The patient was begun treatment initially with Cleocin, Zosyn and vancomycin. Cultures having been obtained. CT scan of the left up per extremity revealed a dialysis graft in the left arm. There was noted to be a thrombus in the lef t axillary vein, and extensive subcutaneous edema and soft tissue swelling seen over the entire left upper extremity and these were from the level of the upper arm to the hand and greater at the dorsum of the hand. Ultrasound of the left upper extremity revealed a pseudoaneurysm in the antecubital fos sa, likely arising from the brachial artery measuring 2.3 x 1.2 x 1.3 cm with a 6 mm neck ____ wave m otions in the neck. There was a left upper extremity dialysis graft that was identified as cephalic outflow vein from the graft also appear to be occluded and contains an echogenic thrombus. PHYSICAL EXAMINATION: Reveals a frail appearing Indo- female, whose pupils do not react to l ight. She has no corneal reflex. Her neck has a jugular venous distention at 30 degrees. The chest is clear to auscultation. The left upper extremity is swollen from the shoulder all the way to the wrist. There is a palpable graft in the antecubital fossa and also the upper arm with extensive scar tissue in this area also. The right arm has little or no edema. The abdomen is soft. There are no palpable organs. There is occasional bowel sounds. There is a large stage III decubitus ulcer in t he sacral area, which does not appear to be infected with moderate amount of granulation tissue, but underlying structures are still visible. There is bilateral +1 pedal edema. Neurologic examination could not be performed because of no cooperation. INITIAL IMPRESSION: Septic shock, left arm thrombophlebitis and left brachial artery stent pseudoane urysm without fasciitis ____ subcutaneous swelling, cellulitis of left upper extremity, end-stage kel al disease, diabetes mellitus, hypertension, anemia of chronic renal disease and diastolic dysfunctio n with normal ejection fraction. RECOMMENDATIONS: I would recommend Zosyn and vancomycin, which will give coverage for streptococci a nd MRSA, but not VRE. I recommend anticoagulation and evaluation by a vascular surgeon. Thank you for referring this interesting patient. Dictated By: Catie HODGES MD EC/NTS Conf#: [id number] DID#: [id number] CC: ERIKA ALVA MD;*EndCC*
--- NOTE | 2019-01-30 08:11 | CONS ---
Assessment/Plan Assessment/Plan Assessment/Plan (Daily) Ventilator setting; AC of 20, tidal volume 450, PEEP of 5, 30% FiO2. Patient is currently on Levophed 30 mics per minute, IV heparin via protocol. Assessment and recommendations; 1. Patient admitted with severe septic shock due to extensive ecchymosis and likely infection involving left upper extremity. There is thrombus in the AV shunt. Currently on IV heparin via protocol. 2. Acute encephalopathy which likely is metabolic in etiology. 3. Profound metabolic acidosis. 4. Chronic renal failure, on hemodialysis. 5. Shock. 6. Apparently patient has a history of quadriplegia and is bedridden. With chronic dysphagia status post G-tube placement in the past. Administer additional sodium bicarbonate. Obtain follow-up ABG and 2 to 3 hours. Hemodialysis per prosthetist. Administer hydrocortisone 50 mg IV every 6 hours. Continue current antimicrobial regimen as well. Prognosis appears very guarded at this point. 35 minutes of critical care time was spent evaluating the patient. Consultation Date/Type/Reason Admit Date/Time January 29, 2019 at 09:58 Initial Consult Date 01/29/19 Type of Consult Pulmonary/critical care Reason for Consultation Patient's condition remains critical. Remains hypotensive requiring Levophed. General exam; elderly woman, appears emaciated, orally intubated, essentially unresponsive. Currently in no distress. Orally intubated. Requesting Provider: TYE NUNEZ DO Date/Time of Note DATE: 01/30/19 TIME: 08:07 Exam/Review of Systems Exam Vitals Vital Signs Date Temp Pulse Resp B/P (MAP) Pulse Ox O2 O2 Flow FiO2 Time Delivery Rate 01/30/19 103 30 130/44 100 Mechanical 07:00 (72) Ventilator 01/30/19 30 05:38 01/30/19 99.6 04:00 01/29/19 15 09:32 Intake and Output 01/29/19 01/29/19 01/30/19 1515:00 23:00 07:00 IntakeIntake Total 1350 ml 270.37 ml 1266.95 ml OutputOutput Total 0 ml 0 ml BalanceBalance 1350 ml 270.37 ml 1266.95 ml Exam H EENT exam; supple neck, no JVD. No lymphadenopathy. Midline trachea. No thyromegaly. Orally intubated. Patient has fair dentition. No mucosal bleeding noted. Chest exam; diminished but clear breath sounds. S1-S2 audible, no murmurs. Regular rhythm. Abdomen exam; soft, no organomegaly. G-tube in place. Bowel sounds audible. Extremity exam; extensive blistering and ecchymosis noted involving left upper extremity with edema. Mild lower extremity chronic skin changes noted as well. [employer]PATCH[employer] exam; patient is unresponsive currently. Results Result Diagram: 01/30/19 0400 01/30/19 0400 Results 24hrs Laboratory Tests Test 01/29/19 08:47 01/29/19 09:18 01/29/19 10:21 01/29/19 10:45 White Blood 22.4 H Count Red Blood Count 2.63 L Hemoglobin 7.3 L Hematocrit 24.2 L Mean Corpuscular 92.0 Volume Mean Corpuscular 27.8 L Hemoglobin Mean Corpuscular 30.2 L Hemoglobin Georgette nt Red Cell 16.7 H Distribution Width Platelet Count 303 Mean Platelet 9.7 Volume Immature 1.000 H Granulocytes % Neutrophils % Segmented 46 Neutrophils % (Manual) Band Neutrophils 42 H % (Manual) Lymphocytes % Lymphocytes % 1 L (Manual) Monocytes % Monocytes % 4 (Manual) Eosinophils % Basophils % Metamyelocytes % 5 H (manual) Myelocytes % 2 H (Manual) Nucleated Red 4 H Blood Cells % Immature 0.220 H Granulocytes # Neutrophils # Neutrophils # 12.4 H (Manual) Band Neutrophils 9.4 H # Lymphocytes 0.2 L (Manual) Lymphocytes # Monocytes # Monocytes # 0.8 (Manual) Eosinophils # Basophils # Metamyelocytes # 1.1 H Myelocytes # 0.4 H Nucleated Red Blood Cells # Platelet NORMAL Estimate Giant Platelets 1 H Polychromasia 1+ Poikilocytosis 2+ Anisocytosis 1+ Spherocytes 1+ Tear Drop Cells 1+ Ovalocytes 1+ Prothrombin Time 16.7 H Prothrombin Time 1.3 Ratio INR 1.34 International Normalized Ratio Activated 38.3 H Partial Thrombop last Time Sodium Level 140 Potassium Level 3.5 Chloride Level 102 Carbon Dioxide 16 L Level Anion Gap 22 H Blood Urea 101 H Nitrogen Creatinine 5.17 H Est Glomerular 8 L Filtrat Rate mL/min Glucose Level 317 H Calcium Level 8.9 Total Bilirubin 0.1 L Direct Bilirubin 0.00 Indirect 0.1 Bilirubin Aspartate Amino 27 Transf (AST/SGOT ) Alanine 8 L Aminotransferase (ALT/SGPT) Alkaline 131 H Phosphatase Troponin I 0.040 Total Protein 6.7 Albumin 3.0 L Globulin 3.70 H Albumin/Globulin 0.81 Ratio Lipase 12 L POC Venous 5.9 *H Lactate Lactic Acid 7.7 *H Level Blood Gas Blood arterial Specimen Source Arterial Blood 01/29/2019 11:15 Date Drawn :13 AM Arterial Blood 7.392 pH (Temp corrected) Arterial Blood 23.2 L pCO2 (Temp correct) Arterial Blood 525.2 H pO2 (Temp corrected) Arterial Blood 13.8 L HCO3 Arterial Blood -10.0 L Base Excess Arterial Blood 99.8 H Oxygen Saturatio n Ben Test N/A Arterial Blood Right Brachial Gas Puncture Site Arterial 0.3 Blood Carboxyhem oglobin Arterial Blood 0.5 Methemoglobin Blood Gas A-a O2 164.6 H Differential Oxyhemoglobin 99.0 Percent Blood Gas 37.0 Temperature Blood Gas 16.0 Respiration Rate Blood Gas Actual 26 Respiration Rate Blood Gas VENT - AC Modality FiO2 100.0 Blood Gas Tidal 450.0 Volume Blood Gas Low 5.0 PEEP Setting Blood Gas TM Notified Whom Blood Gas 01/29/2019 11:28 Notified Time :59 AM Test 01/29/19 13:20 01/29/19 14:36 01/29/19 19:10 01/29/19 20:39 Lactic Acid 6.8 *H 11.1 *H Level Bedside Glucose 166 151 White Blood 17.8 #H Count Red Blood Count 2.49 L Hemoglobin 7.0 L Hematocrit 23.3 L Mean Corpuscular 93.6 Volume Mean Corpuscular 28.1 L Hemoglobin Mean Corpuscular 30.0 L Hemoglobin Georgette nt Red Cell 17.1 H Distribution Width Platelet Count 219 # Mean Platelet 10.0 Volume Immature 3.300 H Granulocytes % Neutrophils % Segmented 38 L Neutrophils % (Manual) Band Neutrophils 47 H % (Manual) Lymphocytes % Lymphocytes % 1 L (Manual) Monocytes % Monocytes % 11 (Manual) Eosinophils % Eosinophils % 1 (Manual) Basophils % Metamyelocytes % 2 H (manual) Nucleated Red 2 H Blood Cells % Immature 0.590 H Granulocytes # Neutrophils # Neutrophils # 8.2 H (Manual) Band Neutrophils 8.3 H # Lymphocytes 0.1 L (Manual) Lymphocytes # Monocytes # Monocytes # 1.9 H (Manual) Eosinophils # Basophils # Metamyelocytes # 0.3 H Nucleated Red Blood Cells # Platelet NORMAL Estimate Giant Platelets 1 H Polychromasia 1+ Poikilocytosis 3+ Anisocytosis 2+ Macrocytosis 1+ Ovalocytes 1+ Prothrombin Time 19.7 H Prothrombin Time 1.5 Ratio INR 1.66 International Normalized Ratio Activated 40.3 H Partial Thrombop last Time Creatine Kinase 382 H Test 01/29/19 21:08 01/30/19 02:02 01/30/19 04:00 01/30/19 05:36 Bedside Glucose 144 163 179 White Blood 32.2 #H Count Red Blood Count 2.45 L Hemoglobin 6.8 *L Hematocrit 23.3 L Mean Corpuscular 95.1 Volume Mean Corpuscular 27.8 L Hemoglobin Mean Corpuscular 29.2 L Hemoglobin Georgette nt Red Cell 17.5 H Distribution Width Platelet Count 233 Mean Platelet 10.7 H Volume Immature 3.400 H Granulocytes % Neutrophils % Segmented 47 Neutrophils % (Manual) Band Neutrophils 25 H % (Manual) Lymphocytes % Lymphocytes % 5 L (Manual) Monocytes % Monocytes % 10 (Manual) Eosinophils % Basophils % Metamyelocytes % 12 H (manual) Myelocytes % 1 H (Manual) Nucleated Red 7 H Blood Cells % Immature 1.090 H Granulocytes # Neutrophils # Neutrophils # 17.7 H (Manual) Band Neutrophils 8.0 H # Lymphocytes 1.6 (Manual) Lymphocytes # Monocytes # Monocytes # 3.2 H (Manual) Eosinophils # Basophils # Metamyelocytes # 3.8 H Myelocytes # 0.3 H Nucleated Red Blood Cells # Platelet NORMAL Estimate Polychromasia 3+ Poikilocytosis 3+ Anisocytosis 2+ Macrocytosis 1+ Acanthocytes 2+ Activated 135.8 *H Partial Thrombop last Time Sodium Level 141 Potassium Level 3.7 Chloride Level 109 Carbon Dioxide 9 #*L Level Anion Gap 23 H Blood Urea 96 H Nitrogen Creatinine 4.58 H Est Glomerular 10 L Filtrat Rate mL/min Glucose Level 167 # Hemoglobin A1c 6.9 H Lactic Acid 10.1 *H Level Calcium Level 7.8 L Phosphorus Level 3.1 Magnesium Level 2.1 Total Bilirubin 0.1 L Direct Bilirubin 0.00 Indirect 0.1 Bilirubin Aspartate Amino 123 H Transf (AST/SGOT ) Alanine 65 Aminotransferase (ALT/SGPT) Alkaline 103 Phosphatase Total Protein 5.5 #L Albumin 2.3 L Globulin 3.20 Albumin/Globulin 0.71 Ratio Triglycerides 280 H Level Cholesterol 52 L Level LDL Cholesterol, Calculated HDL Cholesterol 13 L Cholesterol/HDL 4.0 Ratio Thyroid 0.429 L Stimulating Hormone (TSH) Test 01/30/19 06:00 Blood Gas Blood arterial Specimen Source Arterial Blood 01/30/2019 6:10: Date Drawn 38 AM Arterial Blood 7.156 *L pH (Temp corrected) Arterial Blood 17.7 L pCO2 (Temp correct) Arterial Blood 131.5 H pO2 (Temp corrected) Arterial Blood 6.1 *L HCO3 Arterial Blood -20.8 L Base Excess Arterial Blood 98.1 H Oxygen Saturatio n Ben Test N/A Arterial Blood Right Brachial Gas Puncture Site Arterial 0.4 Blood Carboxyhem oglobin Arterial Blood 0.8 Methemoglobin Blood Gas A-a O2 61.6 H Differential Oxyhemoglobin 96.9 Percent Blood Gas 37.0 Temperature Blood Gas 20.0 Respiration Rate Blood Gas Actual 26 Respiration Rate Blood Gas VENT - AC Modality FiO2 30.0 Blood Gas Tidal 450.0 Volume Blood Gas Low 5.0 PEEP Setting Blood Gas CMEIKLE RN Critical Value Read Back Blood Gas TM Notified Whom Blood Gas 01/30/2019 6:39: Notified Time 55 AM Medications Medication Current Medications Sodium Chloride 1,000 ml @ 75 mls/hr [id number] IV Last administered on 01/30/19at 00:26; Admin Dose 75 MLS/HR; Start 01/29/19 at 09:53; Status Hold IV Flush (NS 3 ml) 3 ml PER PROTOCOL IV ; Start 01/29/19 at 10:00 Ondansetron HCl (Zofran Inj) 4 mg Q6H PRN IV NAUSEA/VOMITING; Start 01/29/19 at 10:00 Morphine Sulfate (morphine) 2 mg Q4H PRN IV .PAIN 7-10; Start 01/29/19 at 10:00 Pantoprazole (Protonix Iv) 40 mg DAILY@06 IV Last administered on 01/30/19at 05:41; Admin Dose 40 MG; Start 01/30/19 at 06:00 Acetaminophen 100 ml @ 400 mls/hr Q6H PRN IVPB fever/pain; Start 01/29/19 at 10:00; Stop 01/30/19 at 09:59 Vancomycin HCl (Vanco Iv Per Pharmacy) VANCOMYCIN PER PHARMACY PER PROTOCOL XX ; Start 01/29/19 at 10:00 Piperacillin Sod/ Tazobactam Sod 50 ml @ 100 mls/hr Q8 IVPB Last administered on 01/30/19at 05:41; Admin Dose 100 MLS/HR; Start 01/29/19 at 15:00 Diagnostic Test (Pha) (Accu-Chek) 1 ea 02 XX Last administered on 01/30/19at 02:04; Admin Dose 1 EA; Start 01/30/19 at 02:00 Insulin Aspart (Novolog Insulin Pen) NOVOLOG *MILD* ALGORITHM Q4 SC ; Start 01/29/19 at 13:00 Miscellaneous Information 1 ea NOTE XX ; Start 01/29/19 at 11:30 Glucose (Glutose) 15 gm Q15M PRN PO DECREASED GLUCOSE; Start 01/29/19 at 11:30 Glucose (Glutose) 22.5 gm Q15M PRN PO DECREASED GLUCOSE; Start 01/29/19 at 11:30 Dextrose (D50w Syringe) 25 ml Q15M PRN IV DECREASED GLUCOSE; Start 01/29/19 at 11:30 Dextrose (D50w Syringe) 50 ml Q15M PRN IV DECREASED GLUCOSE; Start 01/29/19 at 11:30 Glucagon (Glucagen) 1 mg Q15M PRN IM DECREASED GLUCOSE; Start 01/29/19 at 11:30 Glucose (Glutose) 15 gm Q15M PRN BUCCAL DECREASED GLUCOSE; Start 01/29/19 at 11:30 Norepinephrine 250 ml @ 0 mls/hr TITRATE IV Last administered on 01/30/19at 03:44; Admin Dose 41.25 MLS/HR; Start 01/29/19 at 12:30 Heparin Sodium (Porcine) (Heparin (1000 Units/ml)) 4,000 unit PER PROTOCOL PRN IV aPTT<47; Start 01/29/19 at 19:30 Heparin Sodium (Porcine) (Heparin (1000 Units/ml)) 2,000 unit PER PROTOCOL PRN IV aPTT<47-57; Start 01/29/19 at 20:00 Heparin Sodium (Porcine) 250 ml @ 9 mls/hr PER PROTOCOL IV Last administered on 01/29/19at 21:05; Admin Dose 9 MLS/HR; Start 01/29/19 at 20:00 Phenylephrine HCl 250 ml @ 75 mls/hr TITRATE IV Last administered on 01/30/19at 07:08; Admin Dose 112.5 MLS/HR; Start 01/30/19 at 00:30 Sodium Bicarbonate 150 meq/Dextrose 1,000 ml @ 75 mls/hr [id number] IV ; Start 01/30/19 at 07:30 CAM ELIAS January 30, 2019 08:11
--- NOTE | 2019-01-30 08:27 | PN ---
DATE: 01/30/2019 SUBJECTIVE: Yesterday I was initially consulted on Mrs. Alexander in the morning. In the afternoon the hospitalist asked if I would take over as primary care. When I agreed to take over as primary care, I reevaluated the patient, and noted blistering of her left upper extremity. At that time, a vascular surgery consult, general surgery consult and a CT scan of the upper extremity was placed. There was no definitive evidence of necrotizing fasciitis on imaging studies. General surgery recommended an orthopedic consult. Orthopedic consult was requested and is pending evaluation. Infectious disease also evaluated the patient and had low suspicion for necrotizing fasciitis. Overnight, the patient was critically ill, was placed on 2 pressors. Antibiotics were broadened. There were no reports of any active bleeding, no hemoptysis, no hematemesis. Please note, I did discuss the case with the patient's yesterday and I left a message again with the patient's to update on current condition of the patient. OBJECTIVE: VITAL SIGNS: Blood pressure is 130/44, respirations 30, pulse 103, temperature is 99.6. HEENT: Head is normocephalic, atraumatic. NECK: Shows trach. HEART: Tachycardic. LUNGS: Show diminished breath sounds at the base. ABDOMEN: Positive for colostomy, G-tube. EXTREMITIES: Left upper extremity shows less swelling. Denuded skin noted. Also noted are blistering of left forearm, lower extremities are negative for clubbing, cyanosis, no edema. DERMATOLOGIC: No rashes. MUSCULOSKELETAL: No joint effusion. NEUROLOGIC: Limited as the patient is obtunded. LABORATORY DATA: Shows white count 32.2, hemoglobin 6.8, platelet count is 233. Sodium 141, potassium 3.7, bicarbonate 9, BUN 96, creatinine 4.58. Hemoglobin A1c 6.9. Lactic acid 10.1. The patient's ABG was reviewed. IMAGING STUDIES: CT abdomen and upper extremity and arterial ultrasound were reviewed. Arterial ultrasound does show evidence of thrombus of the left upper dialysis graft with thrombus of the left cephalic outflow vein as well as a 2.[address] of the upper extremity with contrast showed extensive soft tissue swelling and edema. No air is seen. No definitive fascial effacement or fascial thickening is identified. Occlusion of the graft is noted. ASSESSMENT AND PLAN: This is a 58-year-old female who presents with: 1. Septic shock. Underlying source is secondary to bacteremia, possibly from left upper extremity cellulitis or line infection. The patient's blood cultures have grown out gram-positive cocci. The patient currently is on broad spectrum antibiotics, on multiple pressors, iv fluids. . Infectious disease has evaluated the patient. Additionally, the patient's left upper extremity has been evaluated by general surgery and is pending orthopedic consult for further recommendations. The patient's femoral permacath will need to be removed. Will ask Dr. Gupta to remove. Will further discuss antibiotic therapy with infectious disease. 2. Left upper extremity cellulitis, with avf, cephalic vein thrombosis. . The patient had CT scan of the upper extremity, which showed no definitive evidence of fasciitis. A general surgery evaluation and vascular surgery evaluation had been done. Multiple orthopedic consult has been placed. I spoke with orthopedist Dr. Hobbs, he agrees to see the patient. We will continue current treatment plan. Continue broad spectrum antibiotics and monitor closely. 3. Thrombosis of left axillary vein. The patient was seen by vascular surgery who recommended a heparin drip. We will continue to monitor for any signs of bleeding. Follow up with vascular surgery. 4. Metabolic acidemia secondary to lactic acidosis. Plan is to continue to treat underlying shock. The patient will be placed on bicarbonate drip. We will monitor and trend lactic acid levels. Follow up ABG. 5. End-stage renal disease. The patient is hemodynamically unstable for HD. Will monitor. 6. Ventilator-dependent respiratory failure. Vent settings and ABG was reviewed. Continue to monitor. 7. Anemia. The patient's hemoglobin levels are low, we will transfuse 2 units of PRBC. No active evidence of bleeding. 8. Mineral bone disorder. Monitor calcium and phosphorus levels. 9. Acute on chronic encephalopathy. Etiology is toxic metabolic. Continue to monitor. 10. History of colostomy. 11. History of diabetes. Continue insulin sliding scale. 12. Dyslipidemia. Continue statin therapy. 13. Dysphagia. 14. Arrhythmia. Continue to monitor. Follow up with Cardiology. Please note, I spent over 30 minutes of critical care time with this patient. Dictated By: TYE KIRBY/NTS Conf#: [id number] DID#: [id number] CC: AARON AYALA MD; ERIKA ALVA MD;*EndCC* [facility]
[2019-01-30] MEDS ORDERED: DOPamine-D5W 1.6 MG/ML 250 ML IV SCH (08:30)
--- NOTE | 2019-01-30 10:58 | CONS ---
Assessment/Plan Assessment/Plan Assessment/Plan (Daily) sEPTIC shock Acute hypoxic respiratory failure End-stage renal disease Quadriplegia Metabolic acidosis Acute renal failure Vent dependent respiratory failure Left upper extremity cellulitis possible fasciitis History of diabetes HyperlipidemIA Code in process family members have been contacted patient has been he wishes to be called with the results with an outpatient survives this catastrophic change in her clinical condition. Consultation Date/Type/Reason Admit Date/Time January 29, 2019 at 09:58 Date/Time of Note DATE: 01/30/19 TIME: 10:57 Hx of Present Illness Asked asked to see this critically ill 4-year-old female who is in the intensive care unit [facility]. Patient was transferred from a senior care facility respiratory distress. Comorbid medical problems include a history of diabetes hypertension dyslipidemia GERD questionable history of CVA by chart records and to quadriplegia and completely bedridden he has a G-tube placed. She is also acutely encephalopathic according medical records on hemodialysis also. Patient has a left upper extremity open wound as his surgery has been consulted general surgery CT scan of the left upper extremity has been placed patient has been seen by general surgery recommends orthopedic surgery according medical records infectious diseases seen patient who feels that this is not a evidence of a necrotizing fasciitis. Patient is currently on 2 pressors systolic blood pressure at this time however is between 30 and 43 multiple phone calls have been placed to patient's this morning to update him about patient's current medical condition as well as sent for dialysis no return phone calls have been received. I have placed a phone call out to patient's family member this morning at 1045 and left a message. Currently patient's blood pressure has fallen to critical levels and ELIANA VINCENT has been called. Past Medical History Home Meds Reported Medications Insulin Aspart* (Novolog Insulin Pen*) 100 Unit/Ml Soln, 0 SC Q4, EA 70-150 = 0 UNITS 151-200 = 2 UNITS 201-250 = 4 UNITS 251-300 = 6 UNITS 301-350 = 8 UNITS 351-400 =10 UNITS >400 = 12 UNITS AND CALL 01/29/19 Sodium Phosphate* (Phos-Nak*) 250 Mg/Pkt Soln, 250 MG GTB BID, PACKET [phone] 01/29/19 Lansoprazole* (Prevacid* Soltab) 30 Mg Tab, 30 MG GTB DAILY, TAB 01/29/19 Multivit/Ca Carb/B Cmplx/Fa* (Teresa-Sonido*) 1 Tab Tab, 1 TAB GTB DAILY, TAB 01/29/19 Calcium Carbonate* (Calcium Carbonate*) 600 MG Ca Tab, 600 MG GTB DAILY, TAB 01/29/19 Acetaminophen* (Acetaminophen*) 650 Mg Tablet, 650 MG GTB Q4 PRN for PAIN LEVEL 4-6 , #30 TAB 01/29/19 Ascorbic Acid* (Vitamin C*) 500 Mg Capsule.sa, 500 MG GTB DAILY, CAP 01/29/19 Zinc Sulfate* (Zinc Sulfate*) 220 Mg Tablet, 220 MG GTB DAILY, TAB 01/29/19 Insulin Detemir (Levemir Flextouch) 100 Unit/1 Ml Insuln.pen, 8 UNIT SQ DAILY, EA IF NPO GIVE 1/2 A DOSE 01/29/19 Calcitriol* (Calcitriol*) 0.5 Mcg Capsule, 0.5 MCG GTB DAILY, CAP 01/29/19 Magnesium Hydroxide* (Milk Of Magnesia*) 400 Mg/5 Ml Oral.susp, 30 ML GTB DAILY PRN for CONSTIPATION, ML 01/29/19 Bisacodyl (Laxative Suppository) 10 Mg Supp.rect, 10 MG RC DAILY PRN for CONSTIPATION, SUPP.RECT 01/29/19 Atorvastatin* (Atorvastatin*) 80 Mg Tablet, 80 MG GTB QHS, #30 TAB 01/29/19 Amlodipine Besylate* (Amlodipine Besylate*) 10 Mg Tablet, 10 MG GTB DAILY, #30 TAB HOLD IF SBP <110 OR HR <60 01/29/19 Medications Current Medications Sodium Chloride 1,000 ml @ 75 mls/hr [id number] IV Last administered on 01/30/19at 00:26; Admin Dose 75 MLS/HR; Start 01/29/19 at 09:53; Status Hold IV Flush (NS 3 ml) 3 ml PER PROTOCOL IV ; Start 01/29/19 at 10:00 Ondansetron HCl (Zofran Inj) 4 mg Q6H PRN IV NAUSEA/VOMITING; Start 01/29/19 at 10:00 Morphine Sulfate (morphine) 2 mg Q4H PRN IV .PAIN 7-10; Start 01/29/19 at 10:00 Pantoprazole (Protonix Iv) 40 mg DAILY@06 IV Last administered on 01/30/19at 05:41; Admin Dose 40 MG; Start 01/30/19 at 06:00 Vancomycin HCl (Vanco Iv Per Pharmacy) VANCOMYCIN PER PHARMACY PER PROTOCOL XX ; Start 01/29/19 at 10:00 Piperacillin Sod/ Tazobactam Sod 50 ml @ 100 mls/hr Q8 IVPB Last administered on 01/30/19at 05:41; Admin Dose 100 MLS/HR; Start 01/29/19 at 15:00 Diagnostic Test (Pha) (Accu-Chek) 1 ea 02 XX Last administered on 01/30/19at 02:04; Admin Dose 1 EA; Start 01/30/19 at 02:00 Insulin Aspart (Novolog Insulin Pen) NOVOLOG *MILD* ALGORITHM Q4 SC Last admini stered on 01/30/19at 10:41; Admin Dose 1 UNIT; Start 01/29/19 at 13:00 Miscellaneous Information 1 ea NOTE XX ; Start 01/29/19 at 11:30 Glucose (Glutose) 15 gm Q15M PRN PO DECREASED GLUCOSE; Start 01/29/19 at 11:30 Glucose (Glutose) 22.5 gm Q15M PRN PO DECREASED GLUCOSE; Start 01/29/19 at 11:30 Dextrose (D50w Syringe) 25 ml Q15M PRN IV DECREASED GLUCOSE; Start 01/29/19 at 11:30 Dextrose (D50w Syringe) 50 ml Q15M PRN IV DECREASED GLUCOSE; Start 01/29/19 at 11:30 Glucagon (Glucagen) 1 mg Q15M PRN IM DECREASED GLUCOSE; Start 01/29/19 at 11:30 Glucose (Glutose) 15 gm Q15M PRN BUCCAL DECREASED GLUCOSE; Start 01/29/19 at 11:30 Norepinephrine 250 ml @ 0 mls/hr TITRATE IV Last administered on 01/30/19at 09:32; Admin Dose 43.125 MLS/HR; Start 01/29/19 at 12:30 Heparin Sodium (Porcine) (Heparin (1000 Units/ml)) 4,000 unit PER PROTOCOL PRN IV aPTT<47; Start 01/29/19 at 19:30 Heparin Sodium (Porcine) (Heparin (1000 Units/ml)) 2,000 unit PER PROTOCOL PRN IV aPTT<47-57; Start 01/29/19 at 20:00 Heparin Sodium (Porcine) 250 ml @ 9 mls/hr PER PROTOCOL IV Last administered on 01/29/19at 21:05; Admin Dose 9 MLS/HR; Start 01/29/19 at 20:00 Phenylephrine HCl 250 ml @ 75 mls/hr TITRATE IV Last administered on 01/30/19at 07:08; Admin Dose 112.5 MLS/HR; Start 01/30/19 at 00:30 Sodium Bicarbonate 150 meq/Dextrose 1,000 ml @ 75 mls/hr [id number] IV Last administered on 01/30/19at 09:02; Admin Dose 75 MLS/HR; Start 01/30/19 at 07:30 Dopamine HCl/ Dextrose 250 ml @ 3.075 mls/ hr TITRATE IV ; Start 01/30/19 at 08:30 Allergies: Coded Allergies: No Known Allergy (Unverified , 01/29/19) Social History Smoking Status: Never smoker Exam/Review of Systems Exam Vitals Vital Signs Date Temp Pulse Resp B/P (MAP) Pulse Ox O2 O2 Flow FiO2 Time Delivery Rate 01/30/19 85 08:00 01/30/19 30 130/44 100 Mechanical 07:00 (72) Ventilator 01/30/19 30 05:38 01/30/19 99.6 04:00 01/29/19 15 09:32 Intake and Output 01/29/19 01/29/19 01/30/19 1515:00 23:00 07:00 IntakeIntake Total 1350 ml 270.37 ml 1412.65 ml OutputOutput Total 0 ml 0 ml BalanceBalance 1350 ml 270.37 ml 1412.65 ml Constitutional: non-verbal, distress, frail Respiratory: clear to auscultation, normal air movement; No congested cough, No crackles/rales, No diminished breath sounds, No intercostal retraction, No labored breathing, No respirations, No tactile fremitus, No wheezing, No other Cardiovascular: regular rate and rhythm, nl pulses; No bruits, No diastolic murmur, No edema, No gallop, No irregular rhythm, No jugular venous distention (JVD), No murmurs/extra sounds, No rub, No systolic murmur, No S3, No S4, No other Extremities: other (Cold clammy) Neurological: other (No response to any verbal or tactile stimulation) Results Result Diagram: 01/30/19 0400 01/30/19 0400 Results 24hrs Laboratory Tests Test 01/29/19 13:20 01/29/19 14:36 01/29/19 19:10 01/29/19 20:39 Lactic Acid Level 6.8 *H 11.1 *H Bedside Glucose 166 151 White Blood Count 17.8 #H Red Blood Count 2.49 L Hemoglobin 7.0 L Hematocrit 23.3 L Mean Corpuscular 93.6 Volume Mean Corpuscular 28.1 L Hemoglobin Mean Corpuscular 30.0 L Hemoglobin Concen t Red Cell 17.1 H Distribution Width Platelet Count 219 # Mean Platelet 10.0 Volume Immature 3.300 H Granulocytes % Neutrophils % Segmented 38 L Neutrophils % (Manual) Band Neutrophils 47 H % (Manual) Lymphocytes % Lymphocytes % 1 L (Manual) Monocytes % Monocytes % 11 (Manual) Eosinophils % Eosinophils % 1 (Manual) Basophils % Metamyelocytes % 2 H (manual) Nucleated Red 2 H Blood Cells % Immature 0.590 H Granulocytes # Neutrophils # Neutrophils # 8.2 H (Manual) Band Neutrophils 8.3 H # Lymphocytes 0.1 L (Manual) Lymphocytes # Monocytes # Monocytes # 1.9 H (Manual) Eosinophils # Basophils # Metamyelocytes # 0.3 H Nucleated Red Blood Cells # Platelet Estimate NORMAL Giant Platelets 1 H Polychromasia 1+ Poikilocytosis 3+ Anisocytosis 2+ Macrocytosis 1+ Ovalocytes 1+ Prothrombin Time 19.7 H Prothrombin Time 1.5 Ratio INR International 1.66 Normalized Ratio Activated 40.3 H Partial Thrombopl ast Time Creatine Kinase 382 H Test 01/29/19 21:08 01/30/19 02:02 01/30/19 04:00 01/30/19 05:36 Bedside Glucose 144 163 179 White Blood Count 32.2 #H Red Blood Count 2.45 L Hemoglobin 6.8 *L Hematocrit 23.3 L Mean Corpuscular 95.1 Volume Mean Corpuscular 27.8 L Hemoglobin Mean Corpuscular 29.2 L Hemoglobin Concen t Red Cell 17.5 H Distribution Width Platelet Count 233 Mean Platelet 10.7 H Volume Immature 3.400 H Granulocytes % Neutrophils % Segmented 43 Neutrophils % (Manual) Band Neutrophils 45 H % (Manual) Lymphocytes % Lymphocytes % 3 L (Manual) Monocytes % Monocytes % 4 (Manual) Eosinophils % Eosinophils % 2 (Manual) Basophils % Metamyelocytes % 1 H (manual) Myelocytes % 2 H (Manual) Nucleated Red 17 H Blood Cells % Immature 1.090 H Granulocytes # Neutrophils # Neutrophils # 18.5 H (Manual) Band Neutrophils 14.4 H # Lymphocytes 0.9 (Manual) Lymphocytes # Monocytes # Monocytes # 1.2 H (Manual) Eosinophils # Basophils # Metamyelocytes # 0.3 H Myelocytes # 0.6 H Nucleated Red Blood Cells # Platelet Estimate NORMAL Giant Platelets 1 H Polychromasia 1+ Poikilocytosis 3+ Anisocytosis 1+ Microcytosis 1+ Macrocytosis 1+ Spherocytes 1+ Acanthocytes 2+ Activated 135.8 *H Partial Thrombopl ast Time Sodium Level 141 Potassium Level 3.7 Chloride Level 109 Carbon Dioxide 9 #*L Level Anion Gap 23 H Blood Urea 96 H Nitrogen Creatinine 4.58 H Est Glomerular 10 L Filtrat Rate mL/min Glucose Level 167 # Hemoglobin A1c 6.9 H Lactic Acid Level 10.1 *H Calcium Level 7.8 L Phosphorus Level 3.1 Magnesium Level 2.1 Total Bilirubin 0.1 L Direct Bilirubin 0.00 Indirect 0.1 Bilirubin Aspartate Amino 123 H Transf (AST/SGOT) Alanine 65 Aminotransferase (ALT/SGPT) Alkaline 103 Phosphatase Total Protein 5.5 #L Albumin 2.3 L Globulin 3.20 Albumin/Globulin 0.71 Ratio Triglycerides 280 H Level Cholesterol Level 52 L LDL Cholesterol, Calculated HDL Cholesterol 13 L Cholesterol/HDL 4.0 Ratio Thyroid 0.429 L Stimulating Hormone (TSH) Test 01/30/19 06:00 01/30/19 08:16 01/30/19 08:22 01/30/19 10:27 Blood Gas Blood arterial Specimen Source Arterial Blood 01/30/2019 6:10:3 Date Drawn 8 AM Arterial Blood pH 7.156 *L (Temp corrected) Arterial Blood 17.7 L pCO2 (Temp correct) Arterial Blood 131.5 H pO2 (Temp corrected) Arterial Blood 6.1 *L HCO3 Arterial Blood -20.8 L Base Excess Arterial Blood 98.1 H Oxygen Saturation Ben Test N/A Arterial Blood Right Brachial Gas Puncture Site Arterial 0.4 Blood Carboxyhemo globin Arterial Blood 0.8 Methemoglobin Blood Gas A-a O2 61.6 H Differential Oxyhemoglobin 96.9 Percent Blood Gas 37.0 Temperature Blood Gas 20.0 Respiration Rate Blood Gas Actual 26 Respiration Rate Blood Gas VENT - AC Modality FiO2 30.0 Blood Gas Tidal 450.0 Volume Blood Gas Low 5.0 PEEP Setting Blood Gas CMEIKELBA DOTY Critical Value Read Back Blood Gas TM Notified Whom Blood Gas 01/30/2019 6:39:5 Notified Time 5 AM Hepatitis B NEGATIVE Surface Antigen Hepatitis B POSITIVE H Surface Antibody Bedside Glucose 153 147 Medications Medication Current Medications Sodium Chloride 1,000 ml @ 75 mls/hr [id number] IV Last administered on 01/30/19at 00:26; Admin Dose 75 MLS/HR; Start 01/29/19 at 09:53; Status Hold IV Flush (NS 3 ml) 3 ml PER PROTOCOL IV ; Start 01/29/19 at 10:00 Ondansetron HCl (Zofran Inj) 4 mg Q6H PRN IV NAUSEA/VOMITING; Start 01/29/19 at 10:00 Morphine Sulfate (morphine) 2 mg Q4H PRN IV .PAIN 7-10; Start 01/29/19 at 10:00 Pantoprazole (Protonix Iv) 40 mg DAILY@06 IV Last administered on 01/30/19at 05:41; Admin Dose 40 MG; Start 01/30/19 at 06:00 Vancomycin HCl (Vanco Iv Per Pharmacy) VANCOMYCIN PER PHARMACY PER PROTOCOL XX ; Start 01/29/19 at 10:00 Piperacillin Sod/ Tazobactam Sod 50 ml @ 100 mls/hr Q8 IVPB Last administered on 01/30/19at 05:41; Admin Dose 100 MLS/HR; Start 01/29/19 at 15:00 Diagnostic Test (Pha) (Accu-Chek) 1 ea 02 XX Last administered on 01/30/19at 02:04; Admin Dose 1 EA; Start 01/30/19 at 02:00 Insulin Aspart (Novolog Insulin Pen) NOVOLOG *MILD* ALGORITHM Q4 SC Last administered on 01/30/19at 10:41; Admin Dose 1 UNIT; Start 01/29/19 at 13:00 Miscellaneous Information 1 ea NOTE XX ; Start 01/29/19 at 11:30 Glucose (Glutose) 15 gm Q15M PRN PO DECREASED GLUCOSE; Start 01/29/19 at 11:30 Glucose (Glutose) 22.5 gm Q15M PRN PO DECREASED GLUCOSE; Start 01/29/19 at 11:30 Dextrose (D50w Syringe) 25 ml Q15M PRN IV DECREASED GLUCOSE; Start 01/29/19 at 11:30 Dextrose (D50w Syringe) 50 ml Q15M PRN IV DECREASED GLUCOSE; Start 01/29/19 at 11:30 Glucagon (Glucagen) 1 mg Q15M PRN IM DECREASED GLUCOSE; Start 01/29/19 at 11:30 Glucose (Glutose) 15 gm Q15M PRN BUCCAL DECREASED GLUCOSE; Start 01/29/19 at 11:30 Norepinephrine 250 ml @ 0 mls/hr TITRATE IV Last administered on 01/30/19at 09:32; Admin Dose 43.125 MLS/HR; Start 01/29/19 at 12:30 Heparin Sodium (Porcine) (Heparin (1000 Units/ml)) 4,000 unit PER PROTOCOL PRN IV aPTT<47; Start 01/29/19 at 19:30 Heparin Sodium (Porcine) (Heparin (1000 Units/ml)) 2,000 unit PER PROTOCOL PRN IV aPTT<47-57; Start 01/29/19 at 20:00 Heparin Sodium (Porcine) 250 ml @ 9 mls/hr PER PROTOCOL IV Last administered on 01/29/19at 21:05; Admin Dose 9 MLS/HR; Start 01/29/19 at 20:00 Phenylephrine HCl 250 ml @ 75 mls/hr TITRATE IV Last administered on 01/30/19at 07:08; Admin Dose 112.5 MLS/HR; Start 01/30/19 at 00:30 Sodium Bicarbonate 150 meq/Dextrose 1,000 ml @ 75 mls/hr [id number] IV Last administered on 01/30/19at 09:02; Admin Dose 75 MLS/HR; Start 01/30/19 at 07:30 Dopamine HCl/ Dextrose 250 ml @ 3.075 mls/ hr TITRATE IV ; Start 01/30/19 at 08:30 JHOAN JEFFERSON January 30, 2019 10:58
[2019-01-30] MEDS ORDERED: VASOPRESSIN 60 UNIT in DEXTROSE 5% 57 ML IV SCH (11:30)
[2019-01-30] MEDS ORDERED: SOD CHLORIDE 0.9% 1,000 ML IV ONE (11:30)
[2019-01-30] MEDS ORDERED: morphine (DRIP) 100 MG/100 ML 100 ML IV SCH (12:00)
[2019-01-30] MEDS ORDERED: morphine 4 MG/ML VIAL IV ONE (12:00)
[2019-01-30] MEDS ORDERED: NORepinephrine 32 MG in DEXTROSE 5% 218 ML IV SCH (12:00)
[2019-01-30] MEDS ORDERED: LORAZEPAM 2 MG INJ IV PRN (12:00)
[2019-01-30] MEDS ORDERED: PHENYLephrine 80 MG in DEXTROSE 5% 242 ML IV SCH (12:00)
--- NOTE | 2019-01-30 12:25 | CONS ---
Assessment/Plan Assessment/Plan Assessment/Plan (Daily) Patient has no pulse no blood pressure no carotid artery pulses. Pronounced at 1210 January 30, 2019 Consultation Date/Type/Reason Admit Date/Time January 29, 2019 at 09:58 Initial Consult Date 01/29/19 Requesting Provider: TYE NUNZE DO Date/Time of Note DATE: 01/30/19 TIME: 12:24 Exam/Review of Systems Exam Vitals Vital Signs Date Temp Pulse Resp B/P (MAP) Pulse Ox O2 O2 Flow FiO2 Time Delivery Rate 01/30/19 54 12:02 01/30/19 30 130/44 100 Mechanical 07:00 (72) Ventilator 01/30/19 30 05:38 01/30/19 99.6 04:00 01/29/19 15 09:32 Intake and Output 01/29/19 01/29/19 01/30/19 1515:00 23:00 07:00 IntakeIntake Total 1350 ml 270.37 ml 1412.65 ml OutputOutput Total 0 ml 0 ml BalanceBalance 1350 ml 270.37 ml 1412.65 ml Results Result Diagram: 01/30/19 0400 01/30/19 0400 Results 24hrs Laboratory Tests Test 01/29/19 13:20 01/29/19 14:36 01/29/19 19:10 01/29/19 20:39 Lactic Acid Level 6.8 *H 11.1 *H Bedside Glucose 166 151 White Blood Count 17.8 #H Red Blood Count 2.49 L Hemoglobin 7.0 L Hematocrit 23.3 L Mean Corpuscular 93.6 Volume Mean Corpuscular 28.1 L Hemoglobin Mean Corpuscular 30.0 L Hemoglobin Concen t Red Cell 17.1 H Distribution Width Platelet Count 219 # Mean Platelet 10.0 Volume Immature 3.300 H Granulocytes % Neutrophils % Segmented 38 L Neutrophils % (Manual) Band Neutrophils 47 H % (Manual) Lymphocytes % Lymphocytes % 1 L (Manual) Monocytes % Monocytes % 11 (Manual) Eosinophils % Eosinophils % 1 (Manual) Basophils % Metamyelocytes % 2 H (manual) Nucleated Red 2 H Blood Cells % Immature 0.590 H Granulocytes # Neutrophils # Neutrophils # 8.2 H (Manual) Band Neutrophils 8.3 H # Lymphocytes 0.1 L (Manual) Lymphocytes # Monocytes # Monocytes # 1.9 H (Manual) Eosinophils # Basophils # Metamyelocytes # 0.3 H Nucleated Red Blood Cells # Platelet Estimate NORMAL Giant Platelets 1 H Polychromasia 1+ Poikilocytosis 3+ Anisocytosis 2+ Macrocytosis 1+ Ovalocytes 1+ Prothrombin Time 19.7 H Prothrombin Time 1.5 Ratio INR International 1.66 Normalized Ratio Activated 40.3 H Partial Thrombopl ast Time Creatine Kinase 382 H Test 01/29/19 21:08 01/30/19 02:02 01/30/19 04:00 01/30/19 05:36 Bedside Glucose 144 163 179 White Blood Count 32.2 #H Red Blood Count 2.45 L Hemoglobin 6.8 *L Hematocrit 23.3 L Mean Corpuscular 95.1 Volume Mean Corpuscular 27.8 L Hemoglobin Mean Corpuscular 29.2 L Hemoglobin Concen t Red Cell 17.5 H Distribution Width Platelet Count 233 Mean Platelet 10.7 H Volume Immature 3.400 H Granulocytes % Neutrophils % Segmented 43 Neutrophils % (Manual) Band Neutrophils 45 H % (Manual) Lymphocytes % Lymphocytes % 3 L (Manual) Monocytes % Monocytes % 4 (Manual) Eosinophils % Eosinophils % 2 (Manual) Basophils % Metamyelocytes % 1 H (manual) Myelocytes % 2 H (Manual) Nucleated Red 17 H Blood Cells % Immature 1.090 H Granulocytes # Neutrophils # Neutrophils # 18.5 H (Manual) Band Neutrophils 14.4 H # Lymphocytes 0.9 (Manual) Lymphocytes # Monocytes # Monocytes # 1.2 H (Manual) Eosinophils # Basophils # Metamyelocytes # 0.3 H Myelocytes # 0.6 H Nucleated Red Blood Cells # Platelet Estimate NORMAL Giant Platelets 1 H Polychromasia 1+ Poikilocytosis 3+ Anisocytosis 1+ Microcytosis 1+ Macrocytosis 1+ Spherocytes 1+ Acanthocytes 2+ Activated 135.8 *H Partial Thrombopl ast Time Sodium Level 141 Potassium Level 3.7 Chloride Level 109 Carbon Dioxide 9 #*L Level Anion Gap 23 H Blood Urea 96 H Nitrogen Creatinine 4.58 H Est Glomerular 10 L Filtrat Rate mL/min Glucose Level 167 # Hemoglobin A1c 6.9 H Lactic Acid Level 10.1 *H Calcium Level 7.8 L Phosphorus Level 3.1 Magnesium Level 2.1 Total Bilirubin 0.1 L Direct Bilirubin 0.00 Indirect 0.1 Bilirubin Aspartate Amino 123 H Transf (AST/SGOT) Alanine 65 Aminotransferase (ALT/SGPT) Alkaline 103 Phosphatase Total Protein 5.5 #L Albumin 2.3 L Globulin 3.20 Albumin/Globulin 0.71 Ratio Triglycerides 280 H Level Cholesterol Level 52 L LDL Cholesterol, Calculated HDL Cholesterol 13 L Cholesterol/HDL 4.0 Ratio Thyroid 0.429 L Stimulating Hormone (TSH) Test 01/30/19 06:00 01/30/19 08:16 01/30/19 08:22 01/30/19 10:27 Blood Gas Blood arterial Specimen Source Arterial Blood 01/30/2019 6:10:3 Date Drawn 8 AM Arterial Blood pH 7.156 *L (Temp corrected) Arterial Blood 17.7 L pCO2 (Temp correct) Arterial Blood 131.5 H pO2 (Temp corrected) Arterial Blood 6.1 *L HCO3 Arterial Blood -20.8 L Base Excess Arterial Blood 98.1 H Oxygen Saturation Ben Test N/A Arterial Blood Right Brachial Gas Puncture Site Arterial 0.4 Blood Carboxyhemo globin Arterial Blood 0.8 Methemoglobin Blood Gas A-a O2 61.6 H Differential Oxyhemoglobin 96.9 Percent Blood Gas 37.0 Temperature Blood Gas 20.0 Respiration Rate Blood Gas Actual 26 Respiration Rate Blood Gas VENT - AC Modality FiO2 30.0 Blood Gas Tidal 450.0 Volume Blood Gas Low 5.0 PEEP Setting Blood Gas CMEIKLE RN Critical Value Read Back Blood Gas TM Notified Whom Blood Gas 01/30/2019 6:39:5 Notified Time 5 AM Hepatitis B NEGATIVE Surface Antigen Hepatitis B POSITIVE H Surface Antibody Bedside Glucose 153 147 Medications Medication Current Medications Sodium Chloride 1,000 ml @ 75 mls/hr [id number] IV Last administered on 01/30/19at 00:26; Admin Dose 75 MLS/HR; Start 01/29/19 at 09:53; Status Hold IV Flush (NS 3 ml) 3 ml PER PROTOCOL IV ; Start 01/29/19 at 10:00 Ondansetron HCl (Zofran Inj) 4 mg Q6H PRN IV NAUSEA/VOMITING; Start 01/29/19 at 10:00 Morphine Sulfate (morphine) 2 mg Q4H PRN IV .PAIN 7-10; Start 01/29/19 at 10:00 Pantoprazole (Protonix Iv) 40 mg DAILY@06 IV Last administered on 01/30/19at 05:41; Admin Dose 40 MG; Start 01/30/19 at 06:00 Vancomycin HCl (Vanco Iv Per Pharmacy) VANCOMYCIN PER PHARMACY PER PROTOCOL XX ; Start 01/29/19 at 10:00 Piperacillin Sod/ Tazobactam Sod 50 ml @ 100 mls/hr Q8 IVPB Last administered on 01/30/19at 05:41; Admin Dose 100 MLS/HR; Start 01/29/19 at 15:00 Diagnostic Test (Pha) (Accu-Chek) 1 ea 02 XX Last administered on 01/30/19at 02:04; Admin Dose 1 EA; Start 01/30/19 at 02:00 Insulin Aspart (Novolog Insulin Pen) NOVOLOG *MILD* ALGORITHM Q4 SC Last administered on 01/30/19at 10:41; Admin Dose 1 UNIT; Start 01/29/19 at 13:00 Miscellaneous Information 1 ea NOTE XX ; Start 01/29/19 at 11:30 Glucose (Glutose) 15 gm Q15M PRN PO DECREASED GLUCOSE; Start 01/29/19 at 11:30 Glucose (Glutose) 22.5 gm Q15M PRN PO DECREASED GLUCOSE; Start 01/29/19 at 11:30 Dextrose (D50w Syringe) 25 ml Q15M PRN IV DECREASED GLUCOSE; Start 01/29/19 at 11:30 Dextrose (D50w Syringe) 50 ml Q15M PRN IV DECREASED GLUCOSE; Start 01/29/19 at 11:30 Glucagon (Glucagen) 1 mg Q15M PRN IM DECREASED GLUCOSE; Start 01/29/19 at 11:30 Glucose (Glutose) 15 gm Q15M PRN BUCCAL DECREASED GLUCOSE; Start 01/29/19 at 11:30 Heparin Sodium (Porcine) (Heparin (1000 Units/ml)) 4,000 unit PER PROTOCOL PRN IV aPTT<47; Start 01/29/19 at 19:30 Heparin Sodium (Porcine) (Heparin (1000 Units/ml)) 2,000 unit PER PROTOCOL PRN IV aPTT<47-57; Start 01/29/19 at 20:00 Heparin Sodium (Porcine) 250 ml @ 9 mls/hr PER PROTOCOL IV Last administered on 01/29/19at 21:05; Admin Dose 9 MLS/HR; Start 01/29/19 at 20:00 Sodium Bicarbonate 150 meq/Dextrose 1,000 ml @ 75 mls/hr [id number] IV Last ad ministered on 01/30/19at 09:02; Admin Dose 75 MLS/HR; Start 01/30/19 at 07:30 Dopamine HCl/ Dextrose 250 ml @ 3.075 mls/ hr TITRATE IV ; Start 01/30/19 at 08:30 Vasopressin 60 unit/Dextrose 60 ml @ 1.2 mls/hr Q12H IV ; Start 01/30/19 at 11:30 Sodium Chloride 1,000 ml @ 1,000 mls/hr Q1H ONCE IV Last administered on 01/30/19at 11:41; Admin Dose 1,000 MLS/HR; Start 01/30/19 at 11:30; Stop 01/30/19 at 12:29 Norepinephrine 32 mg/Dextrose 250 ml @ 0.47 mls/hr TITRATE IV ; Start 01/30/19 at 12:00 Phenylephrine HCl 80 mg/Dextrose 250 ml @ 18.75 mls/ hr TITRATE IV ; Start 01/30/19 at 12:00 Morphine Sulfate/ Sodium Chloride 100 ml @ 1 mls/hr TITRATE IV ; Start 01/30/19 at 12:00 Lorazepam (Ativan) 2 mg Q2H PRN IV SEDATION; Start 01/30/19 at 12:00 JHOAN JEFFERSON January 30, 2019 12:25
--- NOTE | 2019-01-30 16:17 | RADRPT ---
Vent Rate: 87 bpm RR Interval: 692 msec CA Interval: [id number] msec QRS Duration: 131 msec QT Interval: 420 msec QTC Interval: 505 msec P-R-T Trade: [id number] - -86 - 84 degrees Accelerated junctional rhythm...absent P waves, accele'd V-rate RBBB and LAFB...QRSd >120mS, axis(-40,240) Abnrm T, consider ischemia, anterolateral lds...T <-0.20mV, I aVL V2-V6 ST elevation, consider inferior injury...ST >0.08mV, II III aVF Electronically Signed By: Víctor Bianchi
== END 2019-01-30 12:10 | disposition expired | DRG 871 ==
LOC: E/R 08:39 → SUATTDRO 09:50 → ICU 09:58 → EDBEDREQ 13:15
PROVIDERS: ADMIT Internal Medicine; ATTEND Internal Medicine
PROC: 0BH17EZ Insertion of Endotracheal Airway into Trachea, Via Natural or Artificial Opening (ICD-10-PCS; principal; 2019-01-29)
PROC: 5A1945Z Respiratory Ventilation, 24-96 Consecutive Hours (ICD-10-PCS; 2019-01-29)
PROC: 06HM33Z Insertion of Infusion Device into Right Femoral Vein, Percutaneous Approach (ICD-10-PCS; 2019-01-29)
PROC: 4A133R1 Monitoring of Arterial Saturation, Peripheral, Percutaneous Approach (ICD-10-PCS; 2019-01-29)
PROC: 5A1D70Z Performance of Urinary Filtration, Intermittent, Less than 6 Hours Per Day (ICD-10-PCS; 2019-01-30)
DX: A41.89 Other specified sepsis (principal); N18.6 End stage renal disease; G82.50 Quadriplegia, unspecified; J96.01 Acute respiratory failure with hypoxia; J96.02 Acute respiratory failure with hypercapnia; R65.21 Severe sepsis with septic shock; G92 Toxic encephalopathy; E87.2 Acidosis; L03.114 Cellulitis of left upper limb; I12.0 Hypertensive chronic kidney disease with stage 5 chronic kidney disease or end stage renal disease; I82.A12 Acute embolism and thrombosis of left axillary vein; I82.B12 Acute embolism and thrombosis of left subclavian vein; T82.868A Thrombosis due to vascular prosthetic devices, implants and grafts, initial encounter; E11.22 Type 2 diabetes mellitus with diabetic chronic kidney disease; R13.10 Dysphagia, unspecified; K21.9 Gastro-esophageal reflux disease without esophagitis; E78.5 Hyperlipidemia, unspecified; I49.9 Cardiac arrhythmia, unspecified; Z93.1 Gastrostomy status; L89.150 Pressure ulcer of sacral region, unstageable; D64.9 Anemia, unspecified; Z93.3 Colostomy status; Z86.73 Personal history of transient ischemic attack (TIA), and cerebral infarction without residual deficits; Y83.2 Surgical operation with anastomosis, bypass or graft as the cause of abnormal reaction of the patient, or of later complication, without mention of misadventure at the time of the procedure; Z74.01 Bed confinement status
CPT/HCPCS: 31500; 36415; 36600; 71045; 73200; 74176; 80053; 80061; 82550; 82803; 82962; 83036; 83605; 83690; 83735; 84100; 84145; 84443; 84484; 85025; 85610; 85730; 86706; 86850; 86900; 86901; 86920; 87070; 87081; 87340; 87400; 92950; 93005; 93306; 93931; 93971; 94002; 94003; 94770; 96365; C1751; C9113; J0171; J1265; J1644; J1815; J2270; J2370; J2543; J3370; J7030; J7070; Q9967